=== PATIENT | male | born 1970 | race Caucasian/White ===

== ENCOUNTER 2017-03-03 09:42 | Emergency (ER) | payer OTHER, BC ==
[2017-03-03] MEDS ORDERED: Metoclopramide 10 MG/2 ML SDV IVPUSH ONE (09:54)
[2017-03-03] MEDS ORDERED: HYDROmorphone 1 MG/ML Syringe IVPUSH ONE (09:54)
[2017-03-03] MEDS ORDERED: Clindamycin Phosphate 600 MG in Sodium Chloride 0.9% 100 ML IV ONE (09:55)
--- NOTE | 2017-03-03 09:57 | EDM.PDOC ---
ED HPI GENERAL MEDICAL PROBLEM - General Chief Complaint: Trauma Stated Complaint: LEFT HAND INJURY Time Seen by Provider: 03/03/17 09:52 Source of Information: Reports: Patient History Limitations: Reports: No Limitations - History of Present Illness INITIAL COMMENTS - FREE TEXT/NARRATIVE: 47-year-old male presents the ED with a work related injury. Injury occurred 15 minutes prior to arrival in the ED. States his left hand got caught in a third steel pourer that is used in the workplace. States it crushed the distal aspect of all of his fingers and resulted in open fracture and loss of nail from the left thumb. Of note the patient is right-hand dominant. Tetanus vaccination is up to date. He thinks he had an update about 3 months ago. He suffered no other injuries. Has not yet eaten today. Onset: Today Onset Date: 03/03/17 Onset Time: 09:30 Duration: Minutes:, Constant Location: Reports: Upper Extremity, Left (Left distal fingers and distal thumb.) Left Hand Pain Score (Numeric/FACES): 8 - Related Data Allergies Allergy/AdvReac Type Severity Reaction Status Date / Time Penicillins Allergy Rash Verified 03/03/17 09:47 Home Meds: Home Meds Fexofenadine [Siobhan] 180 mg PO DAILY 03/03/17 [History] Past Medical History - Past Surgical History GI Surgical History: Reports: Hernia, Abdominal (Umbilical hernia repair due to incarceration) Social & Family History - Tobacco Use Smoking Status *Q: Never Smoker - Living Situation & Occupation Living situation: Reports: with Significant Other Occupation: Employed Review of Systems - Review of Systems Review Of Systems: See Below Constitutional: Reports: No Symptoms Eyes: Reports: No Symptoms Ears: Reports: No Symptoms Nose: Reports: Other (Has chronic allergic rhinitis and takes Siobhan daily.) Mouth/Throat: Reports: No Symptoms, Other Respiratory: Reports: No Symptoms (Occasional postnasal drip.) Cardiovascular: Reports: No Symptoms GI/Abdominal: Reports: No Symptoms Genitourinary: Reports: No Symptoms Musculoskeletal: Reports: Other (Injury to the left hand) Skin: Reports: No Symptoms Neurological: Reports: No Symptoms (. See history of present illness) Psychiatric: Reports: No Symptoms ED EXAM, TRAUMA (MAJOR/MULTI) - Physical Exam Exam: See Below Exam Limited By: No Limitations General Appearance: Alert, Moderate Distress Head: Atraumatic, Normocephalic Eyes: Bilateral Eye: Normal Inspection Throat/Mouth: Normal Inspection, Normal Lips, Normal Oropharynx Neck: Non-Tender, Full Range of Motion, Normal Alignment, Normal Inspection Cardiovascular: Normal Peripheral Pulses, Regular Rate, Rhythm, No Edema, No Gallop, No Murmur Respiratory/Chest: No Respiratory Distress, Lungs Clear, Normal Breath Sounds, Chest Non-Tender GI/Abdominal: Normal Bowel Sounds, Soft, Non-Tender, No Organomegaly, Other ( Previous umbilical hernia repair.) Back: Full Range of Motion, Normal Inspection, Non-Tender. No: CVA Tenderness ( R), CVA Tenderness (L) Extremities: Other (Examination was limited to the left hand. He is crushtype injuries to all of his fingertips with subungual hematoma of the fifth fourth and third fingertips. Second finger has a abrasion on the radial aspect of the proximal phalanx. Thumb has an avulsion of the pelvis space with loss of the nail completely. Distal phalyngeal bone is exposed. ) Neurologic: Alert, Normal Mood/Affect, Oriented x 3, Sensory Deficit (Distal left thumb.) Skin: Normal Color, Warm/Dry - Steuben Coma Score Best Eye Response (Steuben): (4) Open Spontaneously Best Verbal Response (Steuben): (5) Oriented Best Motor Response (Steuben): (6) Obeys Commands Lucero Total: 15 Course - Vital Signs Last Recorded V/S: Last Vital Signs Temp 36.7 C 03/03/17 09:45 Pulse 72 03/03/17 10:49 Resp 18 03/03/17 10:49 BP 131/86 03/03/17 10:49 Pulse Ox 98 03/03/17 10:49 - Orders/Labs/Meds Orders: Active Orders 24 hr Category Date Time Status Sodium Chloride 0.9% [Normal Saline] 1,000 ml Med 03/03/17 10:00 Active IV ASDIRECTED Medication Orders Sodium Chloride (Normal Saline) 1,000 mls @ 100 mls/hr IV ASDIRECTED MADDIE Last Admin: 03/03/17 10:18 Dose: 100 mls/hr Labs: Laboratory Tests 03/03/17 03/03/17 Range/Units 09:55 09:55 WBC 9.92 H (4.23-9.07) K/mm3 RBC 4.93 (4.63-6.08) M/mm3 Hgb 15.8 (13.7-17.5) gm/L Hct 45.8 (40.1-51.0) % MCV 92.9 H (79.0-92.2) fl MCH 32.0 (25.7-32.2) pg MCHC 34.5 (32.2-35.5) g/dl RDW Std Deviation 40.6 (35.1-43.9) fL Plt Count 334 (163-337) K/mm3 MPV 9.6 (9.4-12.3) fl Neutrophils % (Manual) 51 (40-60) % Band Neutrophils % 0 (0-10) % Lymphocytes % (Manual) 36 (20-40) % Monocytes % (Manual) 5 (2-10) % Eosinophils % (Manual) 6 (0.8-7.0) % Basophils % (Manual) 2 H (0.2-1.2) Platelet Estimate Adequate RBC Morph Comment Normal Sodium 141 (136-145) mEq/L Potassium 3.8 (3.5-5.1) mEq/L Chloride 103 (98-107) mEq/L Carbon Dioxide 26 (21-32) mEq/L Anion Gap 15.8 H (5-15) BUN 16 (7-18) mg/dL Creatinine 1.1 (0.7-1.3) mg/dL Est Cr Clr Drug Dosing TNP Estimated GFR (MDRD) > 60 (>60) mL/min BUN/Creatinine Ratio 14.5 (14-18) Glucose 130 H (74-106) mg/dL Calcium 9.2 (8.5-10.1) mg/dL Total Bilirubin 0.9 (0.2-1.0) mg/dL AST 38 H (15-37) U/L ALT 43 (16-63) U/L Alkaline Phosphatase 66 (46-116) U/L Total Protein 7.8 (6.4-8.2) g/dl Albumin 4.1 (3.4-5.0) g/dl Globulin 3.7 gm/dL Albumin/Globulin Ratio 1.1 (1-2) Meds: Medications Generic Name Dose Route Start Last Admin Trade Name Freq PRN Reason Stop Dose Admin Sodium Chloride 1,000 mls @ 100 mls/hr 03/03/17 10:00 03/03/17 10:18 Normal Saline IV 100 mls/hr ASDIRECTED MADDIE Administration Discontinued Medications Generic Name Dose Route Start Last Admin Trade Name Leann PRN Reason Stop Dose Admin Hydromorphone HCl 1 mg 03/03/17 09:54 03/03/17 10:17 Dilaudid IVPUSH 03/03/17 09:55 1 mg ONETIME ONE Administration Clindamycin Phosphate 600 mg/ 104 mls @ 100 mls/hr 03/03/17 09:55 03/03/17 10 :18 Sodium Chloride IV 03/03/17 10:57 100 mls/hr ONETIME ONE Administration Metoclopramide HCl 7.5 mg 03/03/17 09:54 03/03/17 10:17 Reglan IVPUSH 03/03/17 09:55 7.5 mg ONETIME ONE Administration - Radiology Interpretation Free Text/Narrative:: 47-year-old male presents to the ED with work-related injury. Suffered a crushtype injury to the left distal hand when it went into a third steel pourer in the workplace. He was not wearing a glove at the time of injury. Has suffered obvious crush injuries to the distal phalanx says of all fingers and an avulsion of the nail completely from the thumb to the matrix of the nail as well as the nail have been completely avulsed. Bone is exposed to the air. Plan : X-ray Lt hand. IV normal saline at 100mls per hour. Given Dilaudid 1mg IV with Reglan 7.5mg IV for pain relief. tetanus is reportedly up to date. - Re-Assessments/Exams Free Text/Narrative Re-Assessment/Exam: 03/03/17 10:18 x-rays of the left hand reveal a tuft fracture of the left fifth finger which is closed. Subungual hematoma evident in the fifth fourth and third fingertips. There is a nondisplaced fracture of the proximal phalanx midshaft of the second finger. The skin of course has been avulsed with the entire distal phalanx exposure of the left thumb. At present we do not have orthopedic services available. Patient has requested [facility] for definitive management. I will therefore contact clinical coordinator in this regard. 03/03/17 10:[address] Jerome in bone and joint clinic in [facility] and he has directed that the patient stays n.p.o. after finishing his IV antibiotics and then will travel to the emergency room at [facility] where other Dr. Sheets or himself will become involved in surgical management of his thumb. Patient was so advised. He'll stay n.p.o. of course. This time he will likely be traveling by private vehicle to [facility] in [place]. He is receiving clindamycin 600 mg IV which will take about another 40 minutes to infuse. His thumb wound was irrigated with saline. Then wrapped with a Telfa pad and a dressing applied to the entire hand. 03/03/17 11:19 discharge from the emergency room and he will be traveling by private vehicle to the emergency department at [facility]. He of course will remain n.p.o. Departure - Departure Time of Disposition: 11:17 Disposition: DC/Tfer to Acute Hospital 02 Condition: fair Clinical Impression: Fracture of hand Qualifiers: Encounter type: initial encounter Fracture type: open Laterality: left Qualified Code(s): S62.92XB - Unspecified fracture of left wrist and hand, initial encounter for open fracture Crushing injury of distal finger Qualifiers: Encounter type: initial encounter Qualified Code(s): S67.10XA - Crushing injury of unspecified finger(s), initial encounter Avulsion fracture of left thumb Qualifiers: Encounter type: initial encounter Fracture type: open Qualified Code(s): S62.502B - Fracture of unspecified phalanx of left thumb, initial encounter for open fracture - Discharge Information Referrals: Esvin Enriquez MD [Primary Care Provider] - Additional Instructions: Travel to [facility] emergency department where you will receive definitive orthopedic management of your thumb injury. Nothing to eat or drink enroute. - My Orders Last 24 Hours: My Active Orders 03/03/17 10:00 Sodium Chloride 0.9% [Normal Saline] 1,000 ml IV ASDIRECTED - Assessment/Plan Last 24 Hours: My Active Orders 03/03/17 10:00 Sodium Chloride 0.9% [Normal Saline] 1,000 ml IV ASDIRECTED
[2017-03-03] MEDS ORDERED: Sodium Chloride 0.9% 1,000 ML IV SCH (10:00)
--- NOTE | 2017-03-03 10:50 | CR ---
Left hand: Four views of the left hand were obtained. Comparison: No previous study. Nondisplaced fracture is identified within the proximal aspect of the proximal phalanx of the second digit. Soft tissue injury seen within the thumb. Fracture identified within the corner base of the distal phalanx of the thumb. Small tuft fracture is seen within the tuft of the distal left fifth finger. No additional bony abnormality is seen. Impression: 1. Fractures within the thumb, second finger and fifth finger as noted above. 2. Prominent soft tissue injury within the distal thumb. Diagnostic code #3
[2017-03-03 11:56] VITALS: BP 136/86
== END 2017-03-03 11:34 ==
LOC: JD.ED 09:42 → SUPCPDRO 09:42 → JD.ED 11:30
DX: S62.92XB Unspecified fracture of left hand, initial encounter for open fracture (principal); S67.10XA Crushing injury of unspecified finger(s), initial encounter; S62.502B Fracture of unspecified phalanx of left thumb, initial encounter for open fracture; W31.9XXA Contact with unspecified machinery, initial encounter; Y92.69 Other specified industrial and construction area as the place of occurrence of the external cause; Y99.0 Civilian activity done for income or pay
CPT/HCPCS: 36415; 73130; 80053; 85025; 96365; 96375; 99285; J1170; J2765; J7030; J7040

== ENCOUNTER 2017-12-16 18:48 | Emergency (ER) | payer BC, OTHER ==
[2017-12-16 19:22] VITALS: BP 139/94
--- NOTE | 2017-12-16 19:44 | EDM.PDOC ---
ED HPI GENERAL MEDICAL PROBLEM - General Chief Complaint: ENT Problem Stated Complaint: STREP THROAT Time Seen by Provider: 12/16/17 19:39 Source of Information: Reports: Patient History Limitations: Reports: No Limitations - History of Present Illness INITIAL COMMENTS - FREE TEXT/NARRATIVE: 47-year-old male presents for evaluation and treatment of a sore throat. Patient reports he has extensive sore throat for the last 3 days. Current symptoms include headaches, body aches, productive cough, sore throat and earaches. He has been taking [id number] medications with little relief. No influenza vaccine this season. Duration: Day(s): (3) Throat Pain Score (Numeric/FACES): 10 - Related Data Allergies Allergy/AdvReac Type Severity Reaction Status Date / Time Penicillins Allergy Rash Verified 12/16/17 23:35 Home Meds: Home Meds Fexofenadine [Siobhan] 180 mg PO DAILY 03/03/17 [History] Codeine/Promethazine [Phenergan with Codeine] 5 ml PO Q6HR PRN #120 ml 12/16/17 [Rx] Oseltamivir [Tamiflu] 75 mg PO BID #10 cap 12/16/17 [Rx] Past Medical History HEENT History: Reports: Other (See Below) Other HEENT History: wisdom teeth out. Respiratory History: Reports: Pneumonia, Recurrent Oncologic (Cancer) History: Reports: Other (See Below) Other Oncologic History: had skin area "froze it" to L) forearm--unsure if was skin CA or not. Dermatologic History: Reports: Other (See Below) Other Dermatologic History: had area of skin removed from L) forearm--unsure of skin CA. - Infectious Disease History Infectious Disease History: Reports: Chicken Pox - Past Surgical History GI Surgical History: Reports: Hernia, Abdominal Social & Family History - Family History Family Medical History: Noncontributory - Tobacco Use Smoking Status *Q: Never Smoker Second Hand Smoke Exposure: Yes - Caffeine Use Caffeine Use: Reports: None - Alcohol Use Days Per Week of Alcohol Use: 3 Number of Drinks Per Day: 2 Total Drinks Per Week: 6 - Recreational Drug Use Recreational Drug Use: No - Living Situation & Occupation Living situation: Reports: with Significant Other Occupation: Employed ED ROS ENT - Review of Systems Review Of Systems: See Below Constitutional: Reports: Chills, Malaise, Weakness, Fatigue HEENT: Reports: Throat Pain. Denies: Ear Pain Respiratory: Reports: Cough GI/Abdominal: Denies: Nausea, Vomiting Neurological: Reports: Headache ED EXAM, ENT - Physical Exam Exam: See Below Exam Limited By: No Limitations General Appearance: Alert, WD/WN, Mild Distress Eye Exam: Bilateral Eye: Normal Inspection Ears: Normal External Exam, Normal Canal, Hearing Grossly Normal, Normal TMs Nose: Normal Inspection Mouth/Throat: Normal Inspection, Normal Lips, Normal Oropharynx Neck: Normal Inspection Respiratory/Chest: No Respiratory Distress, Lungs Clear, Normal Breath Sounds Cardiovascular: Normal Peripheral Pulses, Regular Rate, Rhythm, No Murmur Neurological: Alert, Normal Cognition Psychiatric: Normal Affect, Normal Mood Skin: Diaphoretic, Increased Warmth Course - Vital Signs Last Recorded V/S: Last Vital Signs Temp 38.0 C 12/16/17 19:20 Pulse 80 12/16/17 19:20 Resp 18 12/16/17 19:20 BP 139/94 H 12/16/17 19:20 Pulse Ox 99 12/16/17 19:20 - Radiology Interpretation Free Text/Narrative:: Chest x-ray reviewed by myself and Dr crawford Shows no acute intrathoracic process. - Re-Assessments/Exams Free Text/Narrative Re-Assessment/Exam: 12/16/17 21:46 Influenza returned positive for type B. Strep returned negative I reviewed the imaging and labs at the patient. I will offered him something for the cough. I did offer him some Tamiflu as he seems to be in significant distress. I informed him of the side effects. He would like to start the Tamiflu. We'll discharge him home. Discharge instructions as documented. Departure - Departure Time of Disposition: 21:56 Disposition: Home, Self-Care 01 Condition: Fair Clinical Impression: Influenza B - Discharge Information Prescriptions: Codeine/Promethazine [Phenergan with Codeine] 5 ml PO Q6HR PRN #120 ml PRN Reason: Cough Oseltamivir [Tamiflu] 75 mg PO BID #10 cap Instructions: Influenza, Adult, [id number] Referrals: PCP,None [Primary Care Provider] - Forms: ED Department Discharge Additional Instructions: Tamiflu one Twice a day for 5 days. This medication is known to cause upset stomach, nausea, vomiting diarrhea. This will help shorten the severity and the length of your symptoms. Rest. Make sure you're drinking plenty of fluids. Recommend taking the next week off of work. Tylenol and Motrin as needed for headaches and body aches. Cough syrup with codeine 5 mls every 6 hours as needed for cough. Follow up with your primary care provider if your symptoms do not improve much within 2 weeks. Please return to ER if your symptoms change or worsen.
--- NOTE | 2017-12-17 14:25 | CR ---
Chest: Two views of the chest were obtained. Comparison: No prior chest x-ray. Heart size is normal. Tortuous thoracic aorta is seen. Slight increased density is noted within the left base most likely due to scarring or atelectasis. Lungs otherwise are clear with no pneumonia. Bony structures appear within normal limits for the patient's age. Impression: 1. Mild atelectasis or scarring within the left base. 2. Nothing acute is otherwise seen on two-view chest x-ray. Diagnostic code #2
== END 2017-12-16 22:11 | disposition home or self-care (01) ==
LOC: JD.ED 18:48
DX: J10.1 Influenza due to other identified influenza virus with other respiratory manifestations (principal); Z77.22 Contact with and (suspected) exposure to environmental tobacco smoke (acute) (chronic); Z79.899 Other long term (current) drug therapy; Z88.0 Allergy status to penicillin
CPT/HCPCS: 71046; 71046-26; 87081; 87430; 87804; 99283

== ENCOUNTER 2018-04-04 06:32 | Inpatient (IN) | payer BC ==
[2018-04-04] MEDS ORDERED: Morphine 4 MG/ML Syringe IVPUSH ONE (06:50)
[2018-04-04] MEDS ORDERED: Ondansetron 4 MG/2 ML SDV IVPUSH ONE (06:50)
[2018-04-04] MEDS ORDERED: HYDROmorphone 0.5 MG/0.5 ML SYRINGE IVPUSH ONE ×4 (07:06→10:59)
--- NOTE | 2018-04-04 07:10 | EDM.PDOC ---
ED HPI GENERAL MEDICAL PROBLEM - General Chief Complaint: Abdominal Pain Stated Complaint: SEVERE STOMACH PAIN Time Seen by Provider: 04/04/18 07:01 Source of Information: Reports: Patient History Limitations: Reports: No Limitations - History of Present Illness INITIAL COMMENTS - FREE TEXT/NARRATIVE: 48-year-old male presents the ED complained of severe epigastric abdominal pain rating through to his back. Patient states this awoke him suddenly around 0330 hrs. this morning. Pain initially wasn't too bad. He took some antacids but then ended up vomiting. At no time is he vomited any blood it's been mostly bilious emesis. He does not feel bloated or distended. He does not feel he is passing flatus per rectum. Pain is rated as 10 out of 10. It is very sharp and stabbing. It makes it very difficult to take any deep breath at all due to the severity of the pain in the epigastrium. He has had no similar previous problems. Drinks alcohol 2-3 times per week usually 1-3 beers at a time.One beer last night. Only previous abdominal surgery is been umbilical hernia repair. Onset: Today Onset Date: 04/04/18 Onset Time: 03:30 Duration: Hour(s): Location: Reports: Abdomen Quality: Reports: Sharp, Stabbing Severity: Severe Improves with: Reports: None (10 out of 10 pain) Worsens with: Reports: None Context: Reports: Other (Sudden spontaneous occurrence at 0330 hrs. this morning.). Denies: Activity, Exercise, Lifting, Sick Contact, Trauma Associated Symptoms: Reports: Loss of Appetite, Malaise, Nausea/Vomiting, Weakness. 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 [No Known Home Meds] 04/04/18 [History] Past Medical History - Past Health History Medical/Surgical History: Denies Medical/Surgical History HEENT History: Reports: Other (See Below) Other HEENT History: wisdom teeth out. Respiratory History: Reports: Pneumonia, Recurrent Oncologic (Cancer) History: Reports: Other (See Below) Other Oncologic History: had skin area "froze it" to L) forearm--unsure if was skin CA or not. Dermatologic History: Reports: Other (See Below) Other Dermatologic History: had area of skin removed from L) forearm--unsure of skin CA. - Infectious Disease History Infectious Disease History: Reports: Chicken Pox - Past Surgical History GI Surgical History: Reports: Hernia, Abdominal Social & Family History - Family History Family Medical History: Noncontributory - Tobacco Use Smoking Status *Q: Never Smoker Second Hand Smoke Exposure: No - Caffeine Use Caffeine Use: Reports: None - Living Situation & Occupation Living situation: Reports: with Significant Other Occupation: Employed ED ROS GENERAL - Review of Systems Review Of Systems: See Below Constitutional: Reports: Fatigue, Decreased Appetite. Denies: Fever, Chills HEENT: Reports: No Symptoms Respiratory: Reports: Shortness of Breath (Can take a full deep breath due to the severity of the abdominal pain) Cardiovascular: Reports: No Symptoms Endocrine: Reports: No Symptoms GI/Abdominal: Reports: Abdominal Pain, Decreased Appetite (See history of present illness), Nausea, Vomiting : Reports: No Symptoms Musculoskeletal: Reports: No Symptoms Skin: Reports: No Symptoms Neurological: Reports: No Symptoms Psychiatric: Reports: No Symptoms ED EXAM, GI/ABD - Physical Exam Exam: See Below Exam Limited By: No Limitations General Appearance: Alert, WD/WN, Moderate Distress Eyes: Bilateral: Normal Appearance Head: Atraumatic, Normocephalic Neck: Normal Inspection, Supple, Full Range of Motion. No: Carotid Bruit, Lymphadenopathy (L), Lymphadenopathy (R) Respiratory/Chest: No Respiratory Distress, Lungs Clear, Normal Breath Sounds, Chest Non-Tender, Splinting (Mild splinting respirations.) Cardiovascular: Normal Peripheral Pulses, Regular Rate, Rhythm, No Edema, No Gallop, No Murmur GI/Abdominal Exam: Normal Bowel Sounds, Soft, Tender (Very tender in the epigastrium and midline right costal margin. Does have a positive Red's sign. ) Back Exam: Normal Inspection, Full Range of Motion. No: CVA Tenderness (L), CVA Tenderness (R) Extremities: Normal Inspection, Normal Range of Motion, Non-Tender, No Pedal Edema Neurological: Alert, Oriented, CN II-XII Intact, Normal Cognition Psychiatric: Normal Affect, Normal Mood Skin Exam: Warm, Dry, Intact, Normal Color, No Rash EKG INTERPRETATION EKG Date: 04/04/18 Time: 06:57 Rhythm: NSR Rate (Beats/Min): 70 [place]: LAD-Left [place] Deviation (Findings 54) P-Wave: Present (With a short IL interval.) QRS: Other (Q waves leads II, III, and F aVF. Consider old inferior wall myocardial infarction. There are delta waves present in V5 and V6. 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 There is early R-wave transition.) ST-T: Other (There is a mild diffuse early repolarization pattern.) QT: Prolonged EKG Interpretation Comments: Abnormal ECG Course - Vital Signs Last Recorded V/S: Last Vital Signs Temp 36.7 C 04/04/18 06:37 Pulse 73 04/04/18 06:37 Resp 12 04/04/18 06:37 BP 116/75 04/04/18 06:37 Pulse Ox 98 04/04/18 06:37 - Orders/Labs/Meds Orders: Active Orders 24 hr Category Date Time Status EKG Documentation Completion [RC] STAT Care 04/04/18 07:07 Active Abdomen 1V Flat [CR] Stat Exams 04/04/18 07:08 Taken Chest 1V Frontal [CR] Stat Exams 04/04/18 07:07 Taken UA W/MICROSCOPIC [URIN] Stat Lab 04/04/18 10:45 Ordered Sodium Chloride 0.9% [Normal Saline] 1,000 ml Med 04/04/18 07:15 Active IV ASDIRECTED Sodium Chloride 0.9% [Normal Saline] 1,000 ml Med 04/04/18 11:15 Active IV ASDIRECTED Medication Orders Heparin Sodium (Porcine) (Heparin Sodium) 5,000 units SUBCUT Q8H MADDIE Hydromorphone HCl (Dilaudid) 1 mg IVPUSH Q2H PRN PRN Reason: Pain Sodium Chloride (Normal Saline) 1,000 mls @ 500 mls/hr IV ASDIRECTED MADDIE Last Admin: 04/04/18 07:14 Dose: 500 mls/hr Sodium Chloride (Normal Saline) 1,000 mls @ 999 mls/hr IV ASDIRECTED MADDIE Last Admin: 04/04/18 11:05 Dose: 999 mls/hr Sodium Chloride (Normal Saline) 1,000 mls @ 200 mls/hr IV ASDIRECTED MADDIE Ondansetron HCl (Zofran) 4 mg IVPUSH Q8H PRN PRN Reason: Nausea Labs: Laboratory Tests 04/04/18 04/04/18 04/04/18 Range/Units 06:42 06:42 06:42 WBC 13.81 H (4.23-9.07) K/mm3 RBC 4.97 (4.63-6.08) M/mm3 Hgb 15.7 (13.7-17.5) gm/L Hct 46.5 (40.1-51.0) % MCV 93.6 H (79.0-92.2) fl MCH 31.6 (25.7-32.2) pg MCHC 33.8 (32.2-35.5) g/dl RDW Std Deviation 41.7 (35.1-43.9) fL Plt Count 336 (163-337) K/mm3 MPV 9.8 (9.4-12.3) fl Neutrophils % (Manual) 68 H (40-60) % Band Neutrophils % 1 (0-10) % Lymphocytes % (Manual) 22 (20-40) % Atypical Lymphs % 0 % Monocytes % (Manual) 5 (2-10) % Eosinophils % (Manual) 4 (0.8-7.0) % Basophils % (Manual) 0 L (0.2-1.2) Platelet Estimate Adequate RBC Morph Comment Normal PT 10.3 (9.5-12.1) SECONDS INR 0.94 Sodium 140 (136-145) mEq/L Potassium 3.6 (3.5-5.1) mEq/L Chloride 104 (98-107) mEq/L Carbon Dioxide 26 (21-32) mEq/L Anion Gap 13.6 (5-15) BUN 16 (7-18) mg/dL Creatinine 1.2 (0.7-1.3) mg/dL Est Cr Clr Drug Dosing 70.38 mL/min Estimated GFR (MDRD) > 60 (>60) mL/min BUN/Creatinine Ratio 13.3 L (14-18) Glucose 190 H (74-106) mg/dL Calcium 9.3 (8.5-10.1) mg/dL Magnesium 1.9 (1.8-2.4) mg/dl Total Bilirubin 1.2 H (0.2-1.0) mg/dL GGT (15-85) U/L AST 254 H (15-37) U/L ALT 159 H (16-63) U/L Alkaline Phosphatase 91 (46-116) U/L Troponin I (0.00-0.056) ng/mL C-Reactive Protein < 0.2 (<1.0) mg/dL Total Protein 7.5 (6.4-8.2) g/dl Albumin 3.9 (3.4-5.0) g/dl Globulin 3.6 gm/dL Albumin/Globulin Ratio 1.1 (1-2) Lipase 70646 H (73-393) U/L Urine Color (Yellow) Urine Appearance (Clear) Urine pH (5.0-8.0) Ur Specific [place] (1.005-1.030) Urine Protein (Negative) Urine Glucose (UA) (Negative) Urine Ketones (Negative) Urine Occult Blood (Negative) Urine Nitrite (Negative) Urine Bilirubin (Negative) Urine Urobilinogen (0.2-1.0) Ur Leukocyte Esterase (Negative) Urine RBC (0-5) /hpf Urine WBC (0-5) /hpf Ur Epithelial Cells (0-5) /hpf Urine Bacteria (FEW) /hpf Urine Mucus (FEW) /hpf 04/04/18 04/04/18 04/04/18 Range/Units 06:42 06:42 10:45 WBC (4.23-9.07) K/mm3 RBC (4.63-6.08) M/mm3 Hgb (13.7-17.5) gm/L Hct (40.1-51.0) % MCV (79.0-92.2) fl MCH (25.7-32.2) pg MCHC (32.2-35.5) g/dl RDW Std Deviation (35.1-43.9) fL Plt Count (163-337) K/mm3 MPV (9.4-12.3) fl Neutrophils % (Manual) (40-60) % Band Neutrophils % (0-10) % Lymphocytes % (Manual) (20-40) % Atypical Lymphs % % Monocytes % (Manual) (2-10) % Eosinophils % (Manual) (0.8-7.0) % Basophils % (Manual) (0.2-1.2) Platelet Estimate RBC Morph Comment PT (9.5-12.1) SECONDS INR Sodium (136-145) mEq/L Potassium (3.5-5.1) mEq/L Chloride (98-107) mEq/L Carbon Dioxide (21-32) mEq/L Anion Gap (5-15) BUN (7-18) mg/dL Creatinine (0.7-1.3) mg/dL Est Cr Clr Drug Dosing mL/min Estimated GFR (MDRD) (>60) mL/min BUN/Creatinine Ratio (14-18) Glucose (74-106) mg/dL Calcium (8.5-10.1) mg/dL Magnesium (1.8-2.4) mg/dl Total Bilirubin (0.2-1.0) mg/dL GGT 257 H (15-85) U/L AST (15-37) U/L ALT (16-63) U/L Alkaline Phosphatase (46-116) U/L Troponin I < 0.017 (0.00-0.056) ng/mL C-Reactive Protein (<1.0) mg/dL Total Protein (6.4-8.2) g/dl Albumin (3.4-5.0) g/dl Globulin gm/dL Albumin/Globulin Ratio (1-2) Lipase (73-393) U/L Urine Color Yellow (Yellow) Urine Appearance Clear (Clear) Urine pH 6.0 (5.0-8.0) Ur Specific [place] 1.015 (1.005-1.030) Urine Protein Negative (Negative) Urine Glucose (UA) Negative (Negative) Urine Ketones Negative (Negative) Urine Occult Blood Negative (Negative) Urine Nitrite Negative (Negative) Urine Bilirubin Negative (Negative) Urine Urobilinogen 0.2 (0.2-1.0) Ur Leukocyte Esterase Negative (Negative) Urine RBC Not seen (0-5) /hpf Urine WBC 0-5 (0-5) /hpf Ur Epithelial Cells 0-5 (0-5) /hpf Urine Bacteria Few (FEW) /hpf Urine Mucus Not seen (FEW) /hpf Meds: Medications Generic Name Dose Route Start Last Admin Trade Name Freq PRN Reason Stop Dose Admin Heparin Sodium (Porcine) 5,000 units 04/04/18 11:15 Heparin Sodium SUBCUT Q8H MADDIE Hydromorphone HCl 1 mg 04/04/18 11:13 Dilaudid IVPUSH Q2H PRN Pain Sodium Chloride 1,000 mls @ 500 mls/hr 04/04/18 07:15 04/04/18 07:14 Normal Saline IV 500 mls/hr ASDIRECTED MADDIE Administration Sodium Chloride 1,000 mls @ 999 mls/hr 04/04/18 11:15 04/04/18 11:05 Normal Saline IV 999 mls/hr ASDIRECTED MADDIE Administration Sodium Chloride 1,000 mls @ 200 mls/hr 04/04/18 11:15 Normal Saline IV ASDIRECTED MADDIE Ondansetron HCl 4 mg 04/04/18 11:13 Zofran IVPUSH Q8H PRN Nausea Discontinued Medications Generic Name Dose Route Start Last Admin Trade Name Leann PRN Reason Stop Dose Admin Hydromorphone HCl 0.5 mg 04/04/18 07:06 04/04/18 07:14 Dilaudid IVPUSH 04/04/18 07:07 0.5 mg ONETIME ONE Administration Hydromorphone HCl 1 mg 04/04/18 08:34 04/04/18 08:39 Dilaudid IVPUSH 04/04/18 08:35 1 mg ONETIME ONE Administration Hydromorphone HCl 1 mg 04/04/18 09:41 04/04/18 09:47 Dilaudid IVPUSH 04/04/18 09:42 1 mg ONETIME ONE Administration Hydromorphone HCl 1 mg 04/04/18 10:59 04/04/18 11:05 Dilaudid IVPUSH 04/04/18 11:00 1 mg ONETIME ONE Administration Iopamidol 125 ml 04/04/18 08:32 04/04/18 09:16 Isovue-300 (61%) IVPUSH 04/04/18 08:33 125 ml ONETIME ONE Administration Morphine Sulfate 4 mg 04/04/18 06:50 04/04/18 06:58 Morphine IVPUSH 04/04/18 06:51 4 mg ONETIME ONE Administration Ondansetron HCl 4 mg 04/04/18 06:50 04/04/18 06:58 Zofran IVPUSH 04/04/18 06:51 4 mg ONETIME ONE Administration Sodium Chloride 10 ml 04/04/18 08:32 04/04/18 09:16 Saline Flush FLUSH 04/04/18 08:33 10 ml ONETIME ONE Administration - Radiology Interpretation Free Text/Narrative:: 48-year-old male presents to the ED with acute onset of severe epigastric pain radiating through to his back 0330 hrs. this morning. Pain intensified over the ensuing hour causing him to have precipitous nausea and vomiting 5. Emesis is been primarily bilious to clear. No he met emesis. No similar problems in the past. Previous bowel surgery is an umbilical hernia repair. On exam scaphoid abdomen. Bowel sounds are present but decreased from the norm. Extremely tender in the epigastrium and to the right costal margin medially. Consideration of perforated peptic ulcer versus biliary colic. Patient received morphine 4 mg IV and Zofran 4 mg IV initially for pain relief. Pain is gone from a 10 down to 5. Will give Dilaudid 0.5 mg IV now. Labs to be collected as well as one of the abdomen to be done. ECG as well. - Re-Assessments/Exams Free Text/Narrative Re-Assessment/Exam: 04/04/18 07:45 chest x-ray reveals a poor inspirational view. He does not reveal any pulmonary infiltrates. Cardiac silhouette appears to be normal. KUB reveals a large amount of air distending the stomach. There is a large stool bolus in the right hepatic flexure area. Similarly her stool in the rectal vault. There is no signs of bowel obstruction. ECG is abnormal. He is sinus rhythm at 70/m. There is early R-wave transition. There is a short IL interval. There are delta waves present in V5 V6 with a left axis deviation of -54. 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 There are Q waves leads II, III, and F aVF. Consideration of inferior wall myocardial infarction. Every T interval is prolonged at 429. There is a diffuse early repolarization pattern but no true ischemic signs identified 04/04/18 08:27 Labs reveal an elevated white count at 13.81 with 60% neutrophils and no bands. Hemoglobin is 15.7. Hematocrit is 46.5. MCV is mildly elevated at 93.6. Platelet count is normal at 3 and 36,000. PT is 10.3 with an INR of 0.94. Sodium is 140. Potassium 3.6. Chloride is 104. Bicarbonate is 26. And a gap is normal at 13.6. BUN is 16 with a creatinine of 1.2. GFR is greater than 60. Glucose is elevated at 190. Bilirubin is 1.2 with a GGT elevated at 257. AST is elevated at 54 ELT is 159. Alkaline phosphatase is normal at 91. Lipase is 31,453. Patient therefore is exhibiting signs and his acute pancreatitis. Elevated GGT suggest possibility of biliary tree obstruction although alkaline phosphatase is normal. Plan CT of the abdomen to be done with IV contrast. Discussed the findings with the patient. He still having pain 8 out of 10. Landed Dilaudid 1 mg IV. 04/04/18 09:31 CT of the abdomen and pelvis has been completed with IV contrast only. Lower portions of the lungs are clear. There appears to be a significant pericardial fat pad. Liver is diffusely homogeneous without dilatation of the intrahepatic ducts. Stomach shows it to be distended with a bit of pill calcification in the lower stomach. Pancreas is grossly edematous with stranding suggestive of acute pancreatitis. Gallbladder is distended and shows multiple gallstones. Common bile duct appears to be 5 mm without any obvious obstruction. There is increased stool in the right hemicolon and transverse colon. Kidneys and adrenal glands appear normal. Pelvis appears to be normal. Will await the radiologist's report. 04/04/18 09:40 radiologist's report is similar to my findings. He does not comment on the common bile duct. I spoke with Dr. Mosquera health promotion officer hospitalist in this regard. She will see him in the ED. He is still having severe pain. Will repeat Dilaudid 1 mg IV. 04/04/18 09:54 Dr Hebert Mosquera is seen the patient in the ED. She wishes me to consult health promotion officer surgeon for his opinion in regards to acute cholecystectomy. 04/04/18 11:00 Pain has increased in intensity once again. He has been examined by Dr. Tripathi--local surgeon as well. Plan will be to admit him to the hospital under hospitalist care. He requires definitive cholecystectomy but it is determined that he requires a period of time to reduce his acute pancreatitis symptoms prior to going into surgery. This will likely be a few days. Will repeat Dilaudid 1 mg IV at this time. Departure - Departure Time of Disposition: 11:01 Disposition: Admitted As Inpatient 66 Condition: Serious Clinical Impression: Abdominal pain Qualifiers: Abdominal location: epigastric Qualified Code(s): R10.13 - Epigastric pain Pancreatitis Qualifiers: Chronicity: acute Pancreatitis type: biliary Acute pancreatitis complication: unspecified Qualified Code(s): K85.10 - Biliary acute pancreatitis without necrosis or infection Cholelithiasis Qualifiers: Cholelithiasis location: gallbladder and bile duct Cholecystitis acuity: acute Biliary obstruction: without biliary obstruction - Discharge Information - My Orders Last 24 Hours: My Active Orders 04/04/18 07:07 EKG Documentation Completion [RC] STAT Chest 1V Frontal [CR] Stat 04/04/18 07:08 Abdomen 1V Flat [CR] Stat 04/04/18 07:15 Sodium Chloride 0.9% [Normal Saline] 1,000 ml IV ASDIRECTED 04/04/18 11:15 Sodium Chloride 0.9% [Normal Saline] 1,000 ml IV ASDIRECTED - Assessment/Plan Last 24 Hours: My Active Orders 04/04/18 07:07 EKG Documentation Completion [RC] STAT Chest 1V Frontal [CR] Stat 04/04/18 07:08 Abdomen 1V Flat [CR] Stat 04/04/18 07:15 Sodium Chloride 0.9% [Normal Saline] 1,000 ml IV ASDIRECTED 04/04/18 11:15 Sodium Chloride 0.9% [Normal Saline] 1,000 ml IV ASDIRECTED
[2018-04-04] MEDS ORDERED: Sodium Chloride 0.9% 1,000 ML IV SCH ×2 (07:15→11:15)
[2018-04-04] MEDS ORDERED: Iopamidol 612 MG/ML 150 ML Bottle IVPUSH ONE (08:32)
[2018-04-04] MEDS: Sodium Chloride 0.9% 10 ML Syringe FLUSH ONE ×2 (08:39→09:16)
--- NOTE | 2018-04-04 09:29 | CT ---
CT abdomen and pelvis Technique: Multiple axial sections were obtained from above the dome of the diaphragm inferiorly through the pubic symphysis. Intravenous contrast was utilized. No oral contrast was given. Findings: Inflammatory change is identified around the pancreas. Fluid is seen to extend down the paracolic gutter on the right side. Gallstones are seen within the gallbladder. Atelectasis is noted within both lung bases. Liver shows no focal abnormality. Spleen appears within normal limits. Adrenal glands show no nodule. Aorta shows no aneurysmal dilatation. No retroperitoneal adenopathy or mesenteric abnormalities are seen. Appendix is seen which is normal. No pelvic mass or adenopathy is seen. Bone window settings were reviewed which appear within normal limits for the patient's age. Impression: 1. Findings compatible with pancreatitis as noted above. 2. Gallstones. Diagnostic code #3
[2018-04-04] MEDS ORDERED: Ondansetron 4 MG/2 ML SDV IVPUSH PRN (11:13)
[2018-04-04] MEDS: Heparin Sodium 5,000 Units/ML Vial SUBCUT SCH ×2 (12:21→18:22)
[2018-04-04] MEDS: Sodium Chloride 0.9% 1,000 ML IV SCH ×3 (12:21→22:36)
[2018-04-04] MEDS: HYDROmorphone 0.5 MG/0.5 ML SYRINGE IVPUSH PRN ×3 (12:31→17:14)
[2018-04-04] MEDS ORDERED: Albuterol/Ipratropium 3.0-0.5 MG/3 ML Neb Soln NEB PRN (14:00)
--- NOTE | 2018-04-04 14:10 | PCM.HP ---
H&P History of Present Illness - General Date of Service: 04/04/18 Admit Problem/Dx: Admission Diagnosis/Problem Admission Diagnosis/Problem Gallstone pancreatitis Source of Information: Patient History Limitations: Reports: No Limitations - History of Present Illness Initial Comments - Free Text/Narative: 48 yo male, presents with severe mid-epigastric abdominal pain, which started at around 3 AM this morning (about 10 hours ago). Patient has been persistent, requiring IV dilaudid in the ER. Pain has been associated with nausea, without emesis. No prior episodes of similar pain. Patient tried to take antacid at home , but without relief. No diarrhea/constipation. Abdominal Pain Score (Numeric/FACES): 6 - Related Data Allergies/Adverse Reactions: Allergies Allergy/AdvReac Type Severity Reaction Status Date / Time cat dander Allergy Swelling Verified 04/04/18 12:09 dog dander Allergy Swelling Verified 04/04/18 12:09 egg Allergy Swollen Verified 04/04/18 12:09 Tongue Penicillins Allergy Rash Verified 04/04/18 12:09 Home Medications: Home Meds Fexofenadine [Siobhan] 180 mg PO DAILY 04/04/18 [History] Past Medical History - Past Health History Medical/Surgical History: Denies Medical/Surgical History HEENT History: Reports: Other (See Below) Other HEENT History: wisdom teeth out. Respiratory History: Reports: Pneumonia, Recurrent Other Neuro History: headaches from allergies Oncologic (Cancer) History: Reports: Other (See Below) Other Oncologic History: had skin area "froze it" to L) forearm--unsure if was skin CA or not. Dermatologic History: Reports: Other (See Below) Other Dermatologic History: had area of skin removed from L) forearm--unsure of skin CA. - Infectious Disease History Infectious Disease History: Reports: Chicken Pox - Past Surgical History GI Surgical History: Reports: Hernia, Abdominal (prior umbilical hernia repair ( 4 years ago)) Social & Family History - Family History Family Medical History: Noncontributory - Tobacco Use Smoking Status *Q: Former Smoker Used Tobacco, but Quit: Yes Month/Year Tobacco Last Used: 1998 Second Hand Smoke Exposure: No - Caffeine Use Caffeine Use: Reports: Coffee, Energy Drinks, Tea - Alcohol Use Number of Drinks Per Day: 4 Date of Last Drink: 04/03/18 Time of Last Drink: 18:00 - Recreational Drug Use Recreational Drug Use: No 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 Exam - Exam Exam: See Below - Vital Signs Vital Signs: Last Vital Signs Temp 36.4 C 04/04/18 11:50 Pulse 68 04/04/18 11:50 Resp 17 04/04/18 11:50 BP 141/81 H 04/04/18 11:50 Pulse Ox 98 04/04/18 11:50 Weight: 83.143 kg - Exam General: Alert, Oriented, Cooperative HEENT: Conjunctiva Clear. No: Scleral Icterus Neck: Supple Lungs: Clear to Auscultation, Normal Respiratory Effort Cardiovascular: Regular Rate, Regular Rhythm, Normal S1, Normal S2. No: Systolic Murmur GI/Abdominal Exam: Soft, No Distention, Tender (TENDER THROUGHOUT THE ABDOMEN, ESPECIALLY IN THE EPIGASTRIC REGION.), Other (well-healed umbilical surgical scar) Extremities: Normal Inspection Skin: Warm, Dry, Intact Neuro Extensive - Mental Status: Alert Psychiatric: Alert, Other (APPEARS UNCOMFORTABLE, MOANING IN PAIN.) - Patient Data Lab Results Last 24 hrs: Laboratory Results - last 24 hr 04/04/18 04/04/18 04/04/18 Range/Units 06:42 06:42 06:42 WBC 13.81 H (4.23-9.07) K/mm3 RBC 4.97 (4.63-6.08) M/mm3 Hgb 15.7 (13.7-17.5) gm/L Hct 46.5 (40.1-51.0) % MCV 93.6 H (79.0-92.2) fl MCH 31.6 (25.7-32.2) pg MCHC 33.8 (32.2-35.5) g/dl RDW Std Deviation 41.7 (35.1-43.9) fL Plt Count 336 (163-337) K/mm3 MPV 9.8 (9.4-12.3) fl Neutrophils % (Manual) 68 H (40-60) % Band Neutrophils % 1 (0-10) % Lymphocytes % (Manual) 22 (20-40) % Atypical Lymphs % 0 % Monocytes % (Manual) 5 (2-10) % Eosinophils % (Manual) 4 (0.8-7.0) % Basophils % (Manual) 0 L (0.2-1.2) Platelet Estimate Adequate RBC Morph Comment Normal PT 10.3 (9.5-12.1) SECONDS INR 0.94 Sodium 140 (136-145) mEq/L Potassium 3.6 (3.5-5.1) mEq/L Chloride 104 (98-107) mEq/L Carbon Dioxide 26 (21-32) mEq/L Anion Gap 13.6 (5-15) BUN 16 (7-18) mg/dL Creatinine 1.2 (0.7-1.3) mg/dL Est Cr Clr Drug Dosing 70.38 mL/min Estimated GFR (MDRD) > 60 (>60) mL/min BUN/Creatinine Ratio 13.3 L (14-18) Glucose 190 H (74-106) mg/dL Calcium 9.3 (8.5-10.1) mg/dL Magnesium 1.9 (1.8-2.4) mg/dl Total Bilirubin 1.2 H (0.2-1.0) mg/dL GGT (15-85) U/L AST 254 H (15-37) U/L ALT 159 H (16-63) U/L Alkaline Phosphatase 91 (46-116) U/L Troponin I (0.00-0.056) ng/mL C-Reactive Protein < 0.2 (<1.0) mg/dL Total Protein 7.5 (6.4-8.2) g/dl Albumin 3.9 (3.4-5.0) g/dl Globulin 3.6 gm/dL Albumin/Globulin Ratio 1.1 (1-2) Lipase 92980 H (73-393) U/L Urine Color (Yellow) Urine Appearance (Clear) Urine pH (5.0-8.0) Ur Specific [place] (1.005-1.030) Urine Protein (Negative) Urine Glucose (UA) (Negative) Urine Ketones (Negative) Urine Occult Blood (Negative) Urine Nitrite (Negative) Urine Bilirubin (Negative) Urine Urobilinogen (0.2-1.0) Ur Leukocyte Esterase (Negative) Urine RBC (0-5) /hpf Urine WBC (0-5) /hpf Ur Epithelial Cells (0-5) /hpf Urine Bacteria (FEW) /hpf Urine Mucus (FEW) /hpf 04/04/18 04/04/18 04/04/18 Range/Units 06:42 06:42 10:45 WBC (4.23-9.07) K/mm3 RBC (4.63-6.08) M/mm3 Hgb (13.7-17.5) gm/L Hct (40.1-51.0) % MCV (79.0-92.2) fl MCH (25.7-32.2) pg MCHC (32.2-35.5) g/dl RDW Std Deviation (35.1-43.9) fL Plt Count (163-337) K/mm3 MPV (9.4-12.3) fl Neutrophils % (Manual) (40-60) % Band Neutrophils % (0-10) % Lymphocytes % (Manual) (20-40) % Atypical Lymphs % % Monocytes % (Manual) (2-10) % Eosinophils % (Manual) (0.8-7.0) % Basophils % (Manual) (0.2-1.2) Platelet Estimate RBC Morph Comment PT (9.5-12.1) SECONDS INR Sodium (136-145) mEq/L Potassium (3.5-5.1) mEq/L Chloride (98-107) mEq/L Carbon Dioxide (21-32) mEq/L Anion Gap (5-15) BUN (7-18) mg/dL Creatinine (0.7-1.3) mg/dL Est Cr Clr Drug Dosing mL/min Estimated GFR (MDRD) (>60) mL/min BUN/Creatinine Ratio (14-18) Glucose (74-106) mg/dL Calcium (8.5-10.1) mg/dL Magnesium (1.8-2.4) mg/dl Total Bilirubin (0.2-1.0) mg/dL GGT 257 H (15-85) U/L AST (15-37) U/L ALT (16-63) U/L Alkaline Phosphatase (46-116) U/L Troponin I < 0.017 (0.00-0.056) ng/mL C-Reactive Protein (<1.0) mg/dL Total Protein (6.4-8.2) g/dl Albumin (3.4-5.0) g/dl Globulin gm/dL Albumin/Globulin Ratio (1-2) Lipase (73-393) U/L Urine Color Yellow (Yellow) Urine Appearance Clear (Clear) Urine pH 6.0 (5.0-8.0) Ur Specific [place] 1.015 (1.005-1.030) Urine Protein Negative (Negative) Urine Glucose (UA) Negative (Negative) Urine Ketones Negative (Negative) Urine Occult Blood Negative (Negative) Urine Nitrite Negative (Negative) Urine Bilirubin Negative (Negative) Urine Urobilinogen 0.2 (0.2-1.0) Ur Leukocyte Esterase Negative (Negative) Urine RBC Not seen (0-5) /hpf Urine WBC 0-5 (0-5) /hpf Ur Epithelial Cells 0-5 (0-5) /hpf Urine Bacteria Few (FEW) /hpf Urine Mucus Not seen (FEW) /hpf Result Diagrams: 04/04/18 06:42 04/04/18 06:42 Imaging Impressions Last 24 hrs: CT abd/pelvis with IV contrast: Radiology report: "Inflammatory change is identified around the pancreas. Fluid is seen to extend down the paracolic gutter on the right side. Gallstones seen within the gallbladder." - Problem List (1) Acute gallstone pancreatitis SNOMED Code(s): 514942698 ICD Code: K85.10 - BILIARY ACUTE PANCREATITIS WITHOUT NECROSIS OR INFECTION Status: Acute Current Visit: Yes Problem List Initiated/Reviewed/Updated: Yes Orders Last 24hrs: Active Orders 24 hr Category Date Time Status Patient Status [ADT] Routine ADT 04/04/18 11:11 Active EKG Documentation Completion [RC] STAT Care 04/04/18 07:07 Active Intake and Output Strict [RC] Q4HR Care 04/04/18 14:04 Ordered Oxygen Therapy [RC] PRN Care 04/04/18 11:11 Active VTE/DVT Education [RC] PER UNIT ROUTINE Care 04/04/18 11:11 Active Vital Signs [RC] Q4H Care 04/04/18 11:11 Active Nothing per Oral Now Diet [DIET] Diet 04/04/18 Breakfast Active Abdomen 1V Flat [CR] Stat Exams 04/04/18 07:08 Taken Chest 1V Frontal [CR] Stat Exams 04/04/18 07:07 Taken UA W/MICROSCOPIC [URIN] Stat Lab 04/04/18 10:45 Ordered HYDROmorphone [Dilaudid] Med 04/04/18 11:13 Active 1 mg IVPUSH Q2H PRN Heparin Sodium Med 04/04/18 11:15 Active 5,000 units SUBCUT Q8H Ondansetron [Zofran] Med 04/04/18 11:13 Active 4 mg IVPUSH Q8H PRN Sodium Chloride 0.9% [Normal Saline] 1,000 ml Med 04/04/18 07:15 Active IV ASDIRECTED Sodium Chloride 0.9% [Normal Saline] 1,000 ml Med 04/04/18 11:15 Active IV ASDIRECTED Sodium Chloride 0.9% [Normal Saline] 1,000 ml Med 04/04/18 11:15 Active IV ASDIRECTED Sequential Compression Device [OM.PC] Per Unit Routine Oth 04/04/18 11:12 Ordered Resuscitation Status Routine Resus Stat 04/04/18 11:11 Ordered Medication Orders Heparin Sodium (Porcine) (Heparin Sodium) 5,000 units SUBCUT Q8H [facility] Last Admin: 04/04/18 12:21 Dose: 5,000 units Hydromorphone HCl (Dilaudid) 1 mg IVPUSH Q2H PRN PRN Reason: Pain Last Admin: 04/04/18 12:31 Dose: 1 mg Sodium Chloride (Normal Saline) 1,000 mls @ 500 mls/hr IV ASDIRECTED [facility] Last Admin: 04/04/18 07:14 Dose: 500 mls/hr Sodium Chloride (Normal Saline) 1,000 mls @ 999 mls/hr IV ASDIRECTED [facility] Last Admin: 04/04/18 11:05 Dose: 999 mls/hr Sodium Chloride (Normal Saline) 1,000 mls @ 200 mls/hr IV ASDIRECTED [facility] Last Admin: 04/04/18 12:21 Dose: 200 mls/hr Ondansetron HCl (Zofran) 4 mg IVPUSH Q8H PRN PRN Reason: Nausea Assessment/Plan Comment:: 48 yo male, with first episode of acute gallstone pancreatitis, with WBC of 13.8 , glucose of 190, and AST of 254. Based on initial laboratory data, patient has a Zulema score of 1. Tbili is wnl. The patient already received Dilaudid IV and NS 1 L bolus in the ER. Will give an additional [address] Abd/Pelvis images were reviewed. Inflammatory changes around the pancreas, with peripancreatic fluid. Radio-opaque gallstones are also seen. - Will admit to [facility]. - NPO - IV fluids at initial rate of 200 cc/hr, with strict I&O's. - Pain control with IV narcotics and IV acetaminophen. - Repeat labs in AM. - DVT prophylaxis: heparin 5000 units SQ TID. Patient will require cholecystectomy prior to discharge, but for now, will await for improvement in pancreatitis. The patient's care will be taken over by Dr. Le Hernandez tomorrow morning. The patient's images were reviewed with Dr. Hernandez, and the patient's clinical case was discussed. Robinson Zapata M.D., F.A.C.S. General Surgery Pager: [phone]
[2018-04-04] MEDS: Morphine PF 30 MG/30 ML PCA Vial IV SCH ×2 (18:11→23:50)
[2018-04-05] MEDS: Sodium Chloride 0.9% 1,000 ML IV SCH ×5 (00:32→23:45)
[2018-04-05] MEDS: Heparin Sodium 5,000 Units/ML Vial SUBCUT SCH ×3 (03:41→19:07)
--- NOTE | 2018-04-05 08:29 | CR ---
Chest: Frontal view of the chest was obtained. Comparison: Prior chest x-ray of 12/16/17. Heart size appears normal. Mild tortuosity of the thoracic aorta is seen. Lungs are clear with no acute parenchymal densities. Bony structures are grossly intact. Impression: 1. Nothing acute is seen on frontal chest x-ray. Diagnostic code #1
--- NOTE | 2018-04-05 08:29 | CR ---
Abdomen: Supine view of the abdomen was obtained. Comparison: No prior abdominal x-ray. Bowel gas pattern appears within normal limits. No abnormal calcifications or soft tissue abnormality is seen. Bony structures are unremarkable. Impression: 1. Nothing acute is seen on supine abdominal x-ray. Diagnostic code #1
[2018-04-05] MEDS: Morphine PF 30 MG/30 ML PCA Vial IV SCH ×2 (08:40→17:00)
--- NOTE | 2018-04-05 13:19 | PCM.PN ---
- General Info Date of Service: 04/05/18 - Patient Data Vitals - Most Recent: Last Vital Signs Temp 99.7 F 04/05/18 11:38 Pulse 95 04/05/18 11:38 Resp 18 04/05/18 11:38 BP 131/87 04/05/18 11:38 Pulse Ox 96 04/05/18 11:38 Weight - Most Recent: 185 lb 6.4 oz I&O - Last 24 Hours: Intake & Output 04/04/18 04/05/18 04/05/18 22:59 06:59 14:59 Intake Total 6694 199 2462 Output Total 600 475 250 Balance 650 106 873 Lab Results Last 24 Hours: Laboratory Results - last 24 hr 04/05/18 04/05/18 Range/Units 06:35 06:35 WBC 13.42 H (4.23-9.07) K/mm3 RBC 4.52 L (4.63-6.08) M/mm3 Hgb 14.6 (13.7-17.5) gm/L Hct 43.7 (40.1-51.0) % MCV 96.7 H (79.0-92.2) fl MCH 32.3 H (25.7-32.2) pg MCHC 33.4 (32.2-35.5) g/dl RDW Std Deviation 43.9 (35.1-43.9) fL Plt Count 236 (163-337) K/mm3 MPV 10.0 (9.4-12.3) fl Neut % (Auto) 82.6 H (34.0-67.9) % Lymph % (Auto) 6.6 L (21.8-53.1) % [place] % (Auto) 10.5 (5.3-12.2) % Eos % (Auto) 0 L (0.8-7.0) Baso % (Auto) 0.1 (0.1-1.2) % Neut # (Auto) 11.08 H (1.78-5.38) K/mm3 Lymph # (Auto) 0.89 L (1.32-3.57) K/mm3 [place] # (Auto) 1.41 H (0.30-0.82) K/mm3 Eos # (Auto) 0.00 L (0.04-0.54) K/mm3 Baso # (Auto) 0.01 (0.01-0.08) K/mm3 Manual Slide Review Abnormal smear Sodium 140 (136-145) mEq/L Potassium 3.6 (3.5-5.1) mEq/L Chloride 106 (98-107) mEq/L Carbon Dioxide 25 (21-32) mEq/L Anion Gap 12.6 (5-15) BUN 12 (7-18) mg/dL Creatinine 0.9 (0.7-1.3) mg/dL Est Cr Clr Drug Dosing 100.38 mL/min Estimated GFR (MDRD) > 60 (>60) mL/min BUN/Creatinine Ratio 13.3 L (14-18) Glucose 143 H (74-106) mg/dL Calcium 8.4 L (8.5-10.1) mg/dL Magnesium 1.5 L (1.8-2.4) mg/dl Total Bilirubin 1.1 H (0.2-1.0) mg/dL AST 106 H (15-37) U/L ALT 160 H (16-63) U/L Alkaline Phosphatase 64 (46-116) U/L Total Protein 6.3 L (6.4-8.2) g/dl Albumin 3.1 L (3.4-5.0) g/dl Globulin 3.2 gm/dL Albumin/Globulin Ratio 1.0 (1-2) Med Orders - Current: Current Medications Albuterol/Ipratropium (Duoneb 3.0-0.5 Mg/3 Ml) 3 ml NEB Q4H PRN PRN Reason: Shortness Of Breath/wheezing Heparin Sodium (Porcine) (Heparin Sodium) 5,000 units SUBCUT Q8H [facility] Last Admin: 04/05/18 11:32 Dose: 5,000 units Hydromorphone HCl (Dilaudid) 1 mg IVPUSH Q2H PRN PRN Reason: Pain Last Admin: 04/04/18 17:14 Dose: 1 mg Sodium Chloride (Normal Saline) 1,000 mls @ 150 mls/hr IV ASDIRECTED [facility] Last Admin: 04/05/18 10:19 Dose: 150 mls/hr Acetaminophen (Ofirmev) 100 mls @ 400 mls/hr IV Q6H PRN PRN Reason: Pain Stop: 04/06/18 01:32 Morphine Sulfate (Morphine [employer] 30 Mg In 30 Ml) 30 mg IV ASDIRECTED [facility]; Protocol Last Admin: 04/05/18 08:40 Dose: 30 mg Ondansetron HCl (Zofran) 4 mg IVPUSH Q8H PRN PRN Reason: Nausea Last Admin: 04/04/18 16:43 Dose: 4 mg Discontinued Medications Hydromorphone HCl (Dilaudid) 0.5 mg IVPUSH ONETIME ONE Stop: 04/04/18 07:07 Last Admin: 04/04/18 07:14 Dose: 0.5 mg Hydromorphone HCl (Dilaudid) 1 mg IVPUSH ONETIME ONE Stop: 04/04/18 08:35 Last Admin: 04/04/18 08:39 Dose: 1 mg Hydromorphone HCl (Dilaudid) 1 mg IVPUSH ONETIME ONE Stop: 04/04/18 09:42 Last Admin: 04/04/18 09:47 Dose: 1 mg Hydromorphone HCl (Dilaudid) 1 mg IVPUSH ONETIME ONE Stop: 04/04/18 11:00 Last Admin: 04/04/18 11:05 Dose: 1 mg Sodium Chloride (Normal Saline) 1,000 mls @ 500 mls/hr IV ASDIRECTED [facility] Last Admin: 04/04/18 07:14 Dose: 500 mls/hr Sodium Chloride (Normal Saline) 1,000 mls @ 999 mls/hr IV ASDIRECTED [facility] Last Admin: 04/04/18 11:05 Dose: 999 mls/hr Sodium Chloride (Normal Saline) 1,000 mls @ 200 mls/hr IV ASDIRECTED [facility] Last Admin: 04/04/18 22:36 Dose: 200 mls/hr Acetaminophen (Ofirmev) 100 mls @ 400 mls/hr IV Q6H PRN PRN Reason: Pain Stop: 04/05/18 18:38 Last Admin: 04/04/18 19:57 Dose: 400 mls/hr Acetaminophen (Ofirmev) 100 mls @ 400 mls/hr IV Q6H PRN PRN Reason: Pain Stop: 04/06/18 02:01 Acetaminophen (Ofirmev) 100 mls @ 400 mls/hr IV NOW ONE Stop: 04/05/18 02:14 Iopamidol (Isovue-300 (61%)) 125 ml IVPUSH ONETIME ONE Stop: 04/04/18 08:33 Last Admin: 04/04/18 09:16 Dose: 125 ml Morphine Sulfate (Morphine) 4 mg IVPUSH ONETIME ONE Stop: 04/04/18 06:51 Last Admin: 04/04/18 06:58 Dose: 4 mg Ondansetron HCl (Zofran) 4 mg IVPUSH ONETIME ONE Stop: 04/04/18 06:51 Last Admin: 04/04/18 06:58 Dose: 4 mg Sodium Chloride (Saline Flush) 10 ml FLUSH ONETIME ONE Stop: 04/04/18 08:33 Last Admin: 04/04/18 09:16 Dose: 10 ml - Problem List Review Problem List Initiated/Reviewed/Updated: Yes - My Orders Last 24 Hours: My Active Orders 04/05/18 12:26 LIPASE [CHEM] Routine 04/05/18 Dinner Clear Liquid Diet [DIET] 04/06/18 05:11 HEPATIC FUNCTION PANEL,HFP [CHEM] Routine - Plan Plan:: 48 yo male, with first episode of acute gallstone pancreatitis, with WBC of 13.8 , glucose of 190, and AST of 254. Based on initial laboratory data, patient has a Zulema score of 1. Tbili is wnl. The patient already received Dilaudid IV and NS 1 L bolus in the ER. Will give an additional [address] Abd/Pelvis images were reviewed. Inflammatory changes around the pancreas, with peripancreatic fluid. Radio-opaque gallstones are also seen. - Will admit to [facility]. - NPO - IV fluids at initial rate of 200 cc/hr, with strict I&O's. - Pain control with IV narcotics and IV acetaminophen. - Repeat labs in AM. - DVT prophylaxis: heparin 5000 units SQ TID. Patient will require cholecystectomy prior to discharge, but for now, will await for improvement in pancreatitis. The patient's care will be taken over by Dr. Le Hernandez tomorrow morning. The patient's images were reviewed with Dr. Hernandez, and the patient's clinical case was discussed. Progress note for Mr. Amaro by Dr. Hernandez April 05, 2018 Mr Amaro had a fairly comfortable night. Low grade fever of 100 voiding without problem but urine is dark No flatus. PE--lungs clear abd--there are occasional bs- still distended and tender in the epigastric area labs slightly improved lipase is pending IMP slightly improved biliary pancreatitis. I discussed with him that we want to wait with checo until his is improved unless things deteriorate i explained that he had a serious case of pancreatitis due to the gall bladder. PLAN will cont with serial exams. ok for clear liquids sparingly.
[2018-04-06] MEDS: Morphine PF 30 MG/30 ML PCA Vial IV SCH ×2 (03:38→11:34)
[2018-04-06] MEDS: Heparin Sodium 5,000 Units/ML Vial SUBCUT SCH ×3 (03:38→18:26)
[2018-04-06] MEDS: Sodium Chloride 0.9% 1,000 ML IV SCH ×2 (06:07→12:56)
--- NOTE | 2018-04-06 08:00 | PCM.PN ---
- General Info Date of Service: 04/06/18 - Patient Data Vitals - Most Recent: Last Vital Signs Temp 99.5 F 04/06/18 03:43 Pulse 105 H 04/06/18 03:43 Resp 15 04/06/18 03:43 BP 130/87 04/06/18 03:43 Pulse Ox 91 L 04/06/18 03:43 Weight - Most Recent: 186 lb 3.2 oz I&O - Last 24 Hours: Intake & Output 04/05/18 04/06/18 04/06/18 22:59 06:59 14:59 Intake Total 1290 1835 Output Total 650 300 Balance 640 1535 Lab Results Last 24 Hours: Laboratory Results - last 24 hr 04/05/18 04/06/18 04/06/18 Range/Units 06:35 05:34 05:34 WBC 12.84 H (4.23-9.07) K/mm3 RBC 4.10 L (4.63-6.08) M/mm3 Hgb 13.1 L (13.7-17.5) gm/L Hct 40.2 (40.1-51.0) % MCV 98.0 H (79.0-92.2) fl MCH 32.0 (25.7-32.2) pg MCHC 32.6 (32.2-35.5) g/dl RDW Std Deviation 44.9 H (35.1-43.9) fL Plt Count 212 (163-337) K/mm3 MPV 9.7 (9.4-12.3) fl Neut % (Auto) 80.0 H (34.0-67.9) % Lymph % (Auto) 8.8 L (21.8-53.1) % [place] % (Auto) 10.4 (5.3-12.2) % Eos % (Auto) 0.3 L (0.8-7.0) Baso % (Auto) 0.2 (0.1-1.2) % Neut # (Auto) 10.27 H (1.78-5.38) K/mm3 Lymph # (Auto) 1.13 L (1.32-3.57) K/mm3 [place] # (Auto) 1.34 H (0.30-0.82) K/mm3 Eos # (Auto) 0.04 (0.04-0.54) K/mm3 Baso # (Auto) 0.02 (0.01-0.08) K/mm3 Manual Slide Review Abnormal smear Sodium 135 L (136-145) mEq/L Potassium 3.6 (3.5-5.1) mEq/L Chloride 102 (98-107) mEq/L Carbon Dioxide 28 (21-32) mEq/L Anion Gap 8.6 (5-15) BUN 10 (7-18) mg/dL Creatinine 0.9 (0.7-1.3) mg/dL Est Cr Clr Drug Dosing 100.38 mL/min Estimated GFR (MDRD) > 60 (>60) mL/min BUN/Creatinine Ratio 11.1 L (14-18) Glucose 154 H (74-106) mg/dL Calcium 8.3 L (8.5-10.1) mg/dL Magnesium 1.6 L (1.8-2.4) mg/dl Total Bilirubin 1.3 H (0.2-1.0) mg/dL AST 49 H (15-37) U/L ALT 90 H (16-63) U/L Alkaline Phosphatase 49 (46-116) U/L Total Protein 5.8 L (6.4-8.2) g/dl Albumin 2.6 L (3.4-5.0) g/dl Globulin 3.2 gm/dL Albumin/Globulin Ratio 0.8 L (1-2) Lipase 7949 H (73-393) U/L Med Orders - Current: Current Medications Albuterol/Ipratropium (Duoneb 3.0-0.5 Mg/3 Ml) 3 ml NEB Q4H PRN PRN Reason: Shortness Of Breath/wheezing Heparin Sodium (Porcine) (Heparin Sodium) 5,000 units SUBCUT Q8H [facility] Last Admin: 04/06/18 03:38 Dose: 5,000 units Hydromorphone HCl (Dilaudid) 1 mg IVPUSH Q2H PRN PRN Reason: Pain Last Admin: 04/04/18 17:14 Dose: 1 mg Sodium Chloride (Normal Saline) 1,000 mls @ 150 mls/hr IV ASDIRECTED [facility] Last Admin: 04/06/18 06:07 Dose: 150 mls/hr Morphine Sulfate (Morphine History Teacher 30 Mg In 30 Ml) 30 mg IV ASDIRECTED [facility]ADDIE; Protocol Last Admin: 04/06/18 03:38 Dose: 30 mg Ondansetron HCl (Zofran) 4 mg IVPUSH Q8H PRN PRN Reason: Nausea Last Admin: 04/04/18 16:43 Dose: 4 mg Discontinued Medications Hydromorphone HCl (Dilaudid) 0.5 mg IVPUSH ONETIME ONE Stop: 04/04/18 07:07 Last Admin: 04/04/18 07:14 Dose: 0.5 mg Hydromorphone HCl (Dilaudid) 1 mg IVPUSH ONETIME ONE Stop: 04/04/18 08:35 Last Admin: 04/04/18 08:39 Dose: 1 mg Hydromorphone HCl (Dilaudid) 1 mg IVPUSH ONETIME ONE Stop: 04/04/18 09:42 Last Admin: 04/04/18 09:47 Dose: 1 mg Hydromorphone HCl (Dilaudid) 1 mg IVPUSH ONETIME ONE Stop: 04/04/18 11:00 Last Admin: 04/04/18 11:05 Dose: 1 mg Sodium Chloride (Normal Saline) 1,000 mls @ [facility] Last Admin: 04/04/18 07:14 Dose: 500 mls/hr Sodium Chloride (Normal Saline) 1,000 mls @ 999 [facility]ls[facility] Last Admin: 04/04/18 11:05 Dose: 999 mls/hr Sodium Chloride (Normal Saline) 1,000 mls @ 200 mls/[facility] Last Admin: 04/04/18 22:36 Dose: 200 mls/hr Acetaminophen (Ofirmev) 100 mls @ 400 mls/hr IV Q6H PRN PRN Reason: Pain Stop: 04/05/18 18:38 Last Admin: 04/04/18 19:57 Dose: 400 mls/hr Acetaminophen (Ofirmev) 100 mls @ 400 mls/hr IV Q6H PRN PRN Reason: Pain Stop: 04/06/18 02:01 Acetaminophen (Ofirmev) 100 mls @ 400 mls/hr IV NOW ONE Stop: 04/05/18 02:14 Acetaminophen (Ofirmev) 100 mls @ 400 mls/hr IV Q6H PRN PRN Reason: Pain Stop: 04/06/18 01:32 Iopamidol (Isovue-300 (61%)) 125 ml IVPUSH ONETIME ONE Stop: 04/04/18 08:33 Last Admin: 04/04/18 09:16 Dose: 125 ml Morphine Sulfate (Morphine) 4 mg IVPUSH ONETIME ONE Stop: 04/04/18 06:51 Last Admin: 04/04/18 06:58 Dose: 4 mg Ondansetron HCl (Zofran) 4 mg IVPUSH ONETIME ONE Stop: 04/04/18 06:51 Last Admin: 04/04/18 06:58 Dose: 4 mg Sodium Chloride (Saline Flush) 10 ml FLUSH ONETIME ONE Stop: 04/04/18 08:33 Last Admin: 04/04/18 09:16 Dose: 10 ml - Problem List Review Problem List Initiated/Reviewed/Updated: Yes - My Orders Last 24 Hours: My Active Orders 04/05/18 Dinner Clear Liquid Diet [DIET] - Assessment Assessment:: He feels much better he has passed a small amt of gas. Still with abd soreness but imporved PE---less distended still with tenderness to deep palp on the rt upper quad labs reviewed wbc slightly inproved the lipase is pending afebrile IMPRESSION improving biliary pancreatitis. i discussed with mr. remy that he will need his gall bladder removed with the improvement in the pancreatitis. i explained that i will be leaving at noon and the Dr. Mukherjee will be taking over his care. He will determine the timing of the gall bladder remova. He seemed pleased with this ok for continuing the clear liquid time spent 10 minutes. - Plan Plan:: 48 yo male, with first episode of acute gallstone pancreatitis, with WBC of 13.8 , glucose of 190, and AST of 254. Based on initial laboratory data, patient has a Assumption score of 1. Tbili is wnl. The patient already received Dilaudid IV and NS 1 L bolus in the ER. Will give an additional [address] Abd/Pelvis images were reviewed. Inflammatory changes around the pancreas, with peripancreatic fluid. Radio-opaque gallstones are also seen. - Will admit to [facility]. - NPO - IV fluids at initial rate of 200 cc/hr, with strict I&O's. - Pain control with IV narcotics and IV acetaminophen. - Repeat labs in AM. - DVT prophylaxis: heparin 5000 units SQ TID. Patient will require cholecystectomy prior to discharge, but for now, will await for improvement in pancreatitis. The patient's care will be taken over by Dr. Le Hernandez tomorrow morning. The patient's images were reviewed with Dr. Hernandez, and the patient's clinical case was discussed. Progress note for Mr. Remy by Dr. Hernandez April 05, 2018 Mr Remy had a fairly comfortable night. Low grade fever of 100 voiding without problem but urine is dark No flatus. PE--lungs clear abd--there are occasional bs- still distended and tender in the epigastric area labs slightly improved lipase is pending IMP slightly improved biliary pancreatitis. I discussed with him that we want to wait with checo until his is improved unless things deteriorate i explained that he had a serious case of pancreatitis due to the gall bladder. PLAN will cont with serial exams. ok for clear liquids sparingly.
[2018-04-06] MEDS ORDERED: Bisacodyl 10 MG Supp RECTAL ONE (08:15)
[2018-04-06] MEDS ORDERED: Pantoprazole 40 MG in Sodium Chloride 0.9% 100 ML IV SCH (16:00)
[2018-04-06] MEDS: Pantoprazole 40 MG Vial IVPUSH SCH (17:09)
[2018-04-06] MEDS: Magnesium Oxide 400 MG Tab PO SCH ×2 (17:09→20:59)
[2018-04-06] MEDS: Potassium Chloride 20 MEQ Tab.ER PO SCH (20:59)
[2018-04-07] MEDS: Morphine PF 30 MG/30 ML PCA Vial IV SCH (00:44)
[2018-04-07] MEDS: Sodium Chloride 0.9% 1,000 ML IV SCH (00:45)
[2018-04-07] MEDS: Heparin Sodium 5,000 Units/ML Vial SUBCUT SCH ×3 (03:59→18:24)
[2018-04-07] MEDS: Loratadine 10 MG Tab PO SCH (09:01)
[2018-04-07] MEDS: Magnesium Oxide 400 MG Tab PO SCH ×2 (09:01→22:36)
[2018-04-07] MEDS: Potassium Chloride 20 MEQ Tab.ER PO SCH ×3 (09:01→22:36)
[2018-04-07] MEDS: Pantoprazole 40 MG Vial IVPUSH SCH (09:02)
[2018-04-07] MEDS ORDERED: Sodium Chloride 0.9% 10 ML Syringe FLUSH PRN (09:51)
[2018-04-07] MEDS ORDERED: Furosemide 20 MG Tab PO ONE (09:51)
--- NOTE | 2018-04-07 09:57 | PCM.SURGPN ---
- General Info Date of Service: 04/07/18 Functional Status: Reports: Pain Controlled, Tolerating Diet, Urinating - Review of Systems Gastrointestinal: Reports: Abdominal Pain (Much improved), Flatus - Patient Data Vitals - Most Recent: Last Vital Signs Temp 36.9 C 04/07/18 07:54 Pulse 98 04/07/18 07:54 Resp 18 04/07/18 07:54 BP 144/87 H 04/07/18 07:54 Pulse Ox 98 04/07/18 07:54 Weight - Most Recent: 88.961 kg I&O - Last 24 Hours: Intake & Output 04/06/18 04/07/18 04/07/18 22:59 06:59 14:59 Intake Total 1403 948 622 Output Total 950 800 500 Balance 453 148 122 Lab Results Last 24 Hrs: Laboratory Results - last 24 hr 04/07/18 04/07/18 Range/Units 06:20 06:20 WBC 12.31 H (4.23-9.07) K/mm3 RBC 3.92 L (4.63-6.08) M/mm3 Hgb 12.6 L (13.7-17.5) gm/L Hct 37.6 L (40.1-51.0) % MCV 95.9 H (79.0-92.2) fl MCH 32.1 (25.7-32.2) pg MCHC 33.5 (32.2-35.5) g/dl RDW Std Deviation 41.4 (35.1-43.9) fL Plt Count 214 (163-337) K/mm3 MPV 10.0 (9.4-12.3) fl Neut % (Auto) 77.7 H (34.0-67.9) % Lymph % (Auto) 9.3 L (21.8-53.1) % [place] % (Auto) 10.9 (5.3-12.2) % Eos % (Auto) 1.7 (0.8-7.0) Baso % (Auto) 0.2 (0.1-1.2) % Neut # (Auto) 9.57 H (1.78-5.38) K/mm3 Lymph # (Auto) 1.15 L (1.32-3.57) K/mm3 [place] # (Auto) 1.34 H (0.30-0.82) K/mm3 Eos # (Auto) 0.21 (0.04-0.54) K/mm3 Baso # (Auto) 0.02 (0.01-0.08) K/mm3 Manual Slide Review Abnormal smear Sodium 134 L (136-145) mEq/L Potassium 3.4 L (3.5-5.1) mEq/L Chloride 100 (98-107) mEq/L Carbon Dioxide 28 (21-32) mEq/L Anion Gap 9.4 (5-15) BUN 8 (7-18) mg/dL Creatinine 0.8 (0.7-1.3) mg/dL Est Cr Clr Drug Dosing 112.92 mL/min Estimated GFR (MDRD) > 60 (>60) mL/min BUN/Creatinine Ratio 10.0 L (14-18) Glucose 126 H (74-106) mg/dL Calcium 8.1 L (8.5-10.1) mg/dL Magnesium 1.9 (1.8-2.4) mg/dl Total Bilirubin 1.2 H (0.2-1.0) mg/dL AST 32 (15-37) U/L ALT 63 (16-63) U/L Alkaline Phosphatase 55 (46-116) U/L Total Protein 6.2 L (6.4-8.2) g/dl Albumin 2.5 L (3.4-5.0) g/dl Globulin 3.7 gm/dL Albumin/Globulin Ratio 0.7 L (1-2) Med Orders - Current: Current Medications Albuterol/Ipratropium (Duoneb 3.0-0.5 Mg/3 Ml) 3 ml NEB Q4H PRN PRN Reason: Shortness Of Breath/wheezing Heparin Sodium (Porcine) (Heparin Sodium) 5,000 units SUBCUT Q8H [facility] Last Admin: 04/07/18 03:59 Dose: 5,000 units Hydromorphone HCl (Dilaudid) 1 mg IVPUSH Q2H PRN PRN Reason: Pain Last Admin: 04/04/18 17:14 Dose: 1 mg Sodium Chloride (Normal Saline) 1,000 mls @ 40 mls/hr IV ASDIRECTED [facility] Last Admin: 04/07/18 00:45 Dose: 150 mls/hr Loratadine (Claritin) 10 mg PO DAILY [facility] Last Admin: 04/07/18 09:01 Dose: 10 mg Magnesium Oxide (Magnesium Oxide) 400 mg PO BID [facility] Last Admin: 04/07/18 09:01 Dose: 400 mg Morphine Sulfate (Morphine Legal Aide 30 Mg In 30 Ml) 30 mg IV ASDIRECTED [facility]; Protocol Last Admin: 04/07/18 00:44 Dose: 30 mg Ondansetron HCl (Zofran) 4 mg IVPUSH Q8H PRN PRN Reason: Nausea Last Admin: 04/04/18 16:43 Dose: 4 mg Pantoprazole Sodium (Protonix Iv) 40 mg IVPUSH DAILY [facility] Last Admin: 04/07/18 09:02 Dose: 40 mg Potassium Chloride (Klor-Con M20) 20 meq PO TID [facility] Last Admin: 04/07/18 09:01 Dose: 20 meq Discontinued Medications Bisacodyl (Dulcolax) 10 mg RECTAL ONETIME ONE Stop: 04/06/18 08:16 Last Admin: 04/06/18 08:36 Dose: 10 mg Hydromorphone HCl (Dilaudid) 0.5 mg IVPUSH ONETIME ONE Stop: 04/04/18 07:07 Last Admin: 04/04/18 07:14 Dose: 0.5 mg Hydromorphone HCl (Dilaudid) 1 mg IVPUSH ONETIME ONE Stop: 04/04/18 08:35 Last Admin: 04/04/18 08:39 Dose: 1 mg Hydromorphone HCl (Dilaudid) 1 mg IVPUSH ONETIME ONE Stop: 04/04/18 09:42 Last Admin: 04/04/18 09:47 Dose: 1 mg Hydromorphone HCl (Dilaudid) 1 mg IVPUSH ONETIME ONE Stop: 04/04/18 11:00 Last Admin: 04/04/18 11:05 Dose: 1 mg Sodium Chloride (Normal Saline) 1,000 mls @ 500 mls/hr IV ASDIRECTED [facility] Last Admin: 04/04/18 07:14 Dose: 500 mls/hr Sodium Chloride (Normal Saline) 1,000 mls @ 999 mls/hr IV ASDIRECTED [facility] Last Admin: 04/04/18 11:05 Dose: 999 mls/hr Sodium Chloride (Normal Saline) 1,000 mls @ 200 mls/hr IV [facility] Last Admin: 04/04/18 22:36 Dose: 200 mls/hr Acetaminophen (Ofirmev) 100 mls @ 400 mls/hr IV Q6H PRN PRN Reason: Pain Stop: 04/05/18 18:38 Last Admin: 04/04/18 19:57 Dose: 400 mls/hr Acetaminophen (Ofirmev) 100 mls @ 400 mls/hr IV Q6H PRN PRN Reason: Pain Stop: 04/06/18 02:01 Acetaminophen (Ofirmev) 100 mls @ 400 mls/hr IV NOW ONE Stop: 04/05/18 02:14 Acetaminophen (Ofirmev) 100 mls @ 400 mls/hr IV Q6H PRN PRN Reason: Pain Stop: 04/06/18 01:32 Pantoprazole Sodium 40 mg/ (Sodium Chloride) 100 mls @ 200 mls/hr IV DAILY [facility] Last Admin: 04/06/18 17:35 Dose: Not Given Iopamidol (Isovue-300 (61%)) 125 ml IVPUSH ONETIME ONE Stop: 04/04/18 08:33 Last Admin: 04/04/18 09:16 Dose: 125 ml Morphine Sulfate (Morphine) 4 mg IVPUSH ONETIME ONE Stop: 04/04/18 06:51 Last Admin: 04/04/18 06:58 Dose: 4 mg Ondansetron HCl (Zofran) 4 mg IVPUSH ONETIME ONE Stop: 04/04/18 06:51 Last Admin: 04/04/18 06:58 Dose: 4 mg Sodium Chloride (Saline Flush) 10 ml FLUSH ONETIME ONE Stop: 04/04/18 08:33 Last Admin: 04/04/18 09:16 Dose: 10 ml - Exam Quality Assessment: Supplemental Oxygen General: Alert, Oriented, Cooperative GI/Abdominal Exam: Distended Extremities: Pedal Edema Skin: Warm, Dry, Intact - Problem List Review Problem List Initiated/Reviewed/Updated: Yes - My Orders Last 24 Hours: Active Orders 24 hr Category Date Time Status Full Liquid Diet [DIET] Diet 04/06/18 Dinner Active Low Fat Diet [DIET] Diet 04/07/18 Lunch Active CBC WITH AUTO DIFF [HEME] AM Lab 04/08/18 05:11 Ordered CBC WITH AUTO DIFF [HEME] AM Lab 04/09/18 05:11 Ordered COMPREHENSIVE METABOLIC PN,CMP [CHEM] AM Lab 04/08/18 05:11 Ordered COMPREHENSIVE METABOLIC PN,CMP [CHEM] AM Lab 04/09/18 05:11 Ordered MAGNESIUM [CHEM] AM Lab 04/08/18 05:11 Ordered MAGNESIUM [CHEM] AM Lab 04/09/18 05:11 Ordered Furosemide [Lasix] Med 04/07/18 09:51 Once 20 mg PO ONETIME ONE Loratadine [Claritin] Med 04/07/18 09:00 Active 10 mg PO DAILY Magnesium Oxide Med 04/06/18 16:00 Active 400 mg PO BID Pantoprazole [ProTONIX IV] Med 04/06/18 16:15 Active 40 mg IVPUSH DAILY Potassium Chloride [Klor-Con M20] Med 04/06/18 21:00 Active 20 meq PO TID Sodium Chloride 0.9% [Saline Flush] Med 04/07/18 09:51 Ordered 10 ml FLUSH ASDIRECTED PRN Convert IV to Saline Lock [OM.PC] Routine Oth 04/07/18 09:51 Ordered Medication Orders Albuterol/Ipratropium (Duoneb 3.0-0.5 Mg/3 Ml) 3 ml NEB Q4H PRN PRN Reason: Shortness Of Breath/wheezing Heparin Sodium (Porcine) (Heparin Sodium) 5,000 units SUBCUT Q8H [facility] Last Admin: 04/07/18 03:59 Dose: 5,000 units Admin: 04/06/18 18:26 Dose: 5,000 units Admin: 04/06/18 11:42 Dose: 5,000 units Admin: 04/06/18 03:38 Dose: 5,000 units Admin: 04/05/18 19:07 Dose: 5,000 units Admin: 04/05/18 11:32 Dose: 5,000 units Admin: 04/05/18 03:41 Dose: 5,000 units Admin: 04/04/18 18:22 Dose: 5,000 units Admin: 04/04/18 12:21 Dose: 5,000 units Hydromorphone HCl (Dilaudid) 1 mg IVPUSH Q2H PRN PRN Reason: Pain Last Admin: 04/04/18 17:14 Dose: 1 mg Admin: 04/04/18 15:21 Dose: 1 mg Admin: 04/04/18 12:31 Dose: 1 mg Sodium Chloride (Normal Saline) 1,000 mls @ 40 mls/hr IV ASDIRECTED [facility] Last Admin: 04/07/18 00:45 Dose: 150 mls/hr Infusion: 04/06/18 19:37 Dose: 150 mls/hr Admin: 04/06/18 12:56 Dose: 150 mls/hr Infusion: 04/06/18 12:48 Dose: 150 mls/hr Admin: 04/06/18 06:07 Dose: 150 mls/hr Infusion: 04/06/18 06:07 Dose: 150 mls/hr Admin: 04/05/18 23:45 Dose: 150 mls/hr Infusion: 04/05/18 23:41 Dose: 150 mls/hr Admin: 04/05/18 17:00 Dose: 150 mls/hr Infusion: 04/05/18 17:00 Dose: 150 mls/hr Admin: 04/05/18 10:19 Dose: 150 mls/hr Infusion: 04/05/18 10:19 Dose: 150 mls/hr Admin: 04/05/18 03:40 Dose: 150 mls/hr Infusion: 04/05/18 03:40 Dose: 150 mls/hr Admin: 04/05/18 00:32 Dose: 150 mls/hr Loratadine (Claritin) 10 mg PO DAILY [facility] Last Admin: 04/07/18 09:01 Dose: 10 mg Magnesium Oxide (Magnesium Oxide) 400 mg PO BID [facility] Last Admin: 04/07/18 09:01 Dose: 400 mg Admin: 04/06/18 20:59 Dose: 400 mg Admin: 04/06/18 17:09 Dose: 400 mg Morphine Sulfate (Morphine Legal Aide 30 Mg In 30 Ml) 30 mg IV ASDIRECTED [facility]; Protocol Last Admin: 04/07/18 00:44 Dose: 30 mg Admin: 04/06/18 11:34 Dose: 30 mg Admin: 04/06/18 03:38 Dose: 30 mg Admin: 04/05/18 17:00 Dose: 30 mg Admin: 04/05/18 08:40 Dose: 30 mg Admin: 04/04/18 23:50 Dose: 30 mg Admin: 04/04/18 18:11 Dose: 30 mg Ondansetron HCl (Zofran) 4 mg IVPUSH Q8H PRN PRN Reason: Nausea Last Admin: 04/04/18 16:43 Dose: 4 mg Pantoprazole Sodium (Protonix Iv) 40 mg IVPUSH DAILY [facility] Last Admin: 04/07/18 09:02 Dose: 40 mg Admin: 04/06/18 17:09 Dose: 40 mg Potassium Chloride (Klor-Con M20) 20 meq PO TID [facility] Last Admin: 04/07/18 09:01 Dose: 20 meq Admin: 04/06/18 20:59 Dose: 20 meq - Assessment Assessment (Free Text/Narrative):: Stable O2 sats overnight running 92-93%. Adynamic ileus. Hypomagnesemia. Hypokalemia. Fluid overload. Evolving pancreatitis stable. - Plan Plan (Free Text/Narrative):: Correcting fluid and electrolyte abnormalities that will stabilize his pulmonary and GI physiology. Plan cholecystectomy on Tuesday.
[2018-04-07] MEDS: HYDROmorphone 0.5 MG/0.5 ML SYRINGE IVPUSH PRN ×4 (12:41→22:32)
[2018-04-08] MEDS: Heparin Sodium 5,000 Units/ML Vial SUBCUT SCH ×3 (03:07→18:48)
[2018-04-08] MEDS: HYDROmorphone 0.5 MG/0.5 ML SYRINGE IVPUSH PRN ×4 (03:07→13:37)
[2018-04-08] MEDS ORDERED: Potassium Chloride 20 MEQ Tab.ER PO ONE (08:05)
--- NOTE | 2018-04-08 08:10 | PCM.SURGPN ---
- General Info Date of Service: 04/08/18 Functional Status: Reports: Pain Controlled, Tolerating Diet, Ambulating, Urinating - Patient Data Vitals - Most Recent: Last Vital Signs Temp 37.1 C 04/08/18 03:50 Pulse 98 04/08/18 03:16 Resp 14 04/08/18 03:16 BP 130/83 04/08/18 03:16 Pulse Ox 93 L 04/08/18 03:16 Weight - Most Recent: 86.228 kg I&O - Last 24 Hours: Intake & Output 04/07/18 04/08/18 04/08/18 22:59 06:59 14:59 Intake Total 950 250 Output Total 1275 825 Balance -325 -575 Lab Results Last 24 Hrs: Laboratory Results - last 24 hr 04/08/18 04/08/18 Range/Units 05:23 05:23 WBC 12.81 H (4.23-9.07) K/mm3 RBC 3.81 L (4.63-6.08) M/mm3 Hgb 12.2 L (13.7-17.5) gm/L Hct 36.2 L (40.1-51.0) % MCV 95.0 H (79.0-92.2) fl MCH 32.0 (25.7-32.2) pg MCHC 33.7 (32.2-35.5) g/dl RDW Std Deviation 40.8 (35.1-43.9) fL Plt Count 255 (163-337) K/mm3 MPV 9.7 (9.4-12.3) fl Neut % (Auto) 76.5 H (34.0-67.9) % Lymph % (Auto) 8.2 L (21.8-53.1) % [place] % (Auto) 11.9 (5.3-12.2) % Eos % (Auto) 3.0 (0.8-7.0) Baso % (Auto) 0.2 (0.1-1.2) % Neut # (Auto) 9.79 H (1.78-5.38) K/mm3 Lymph # (Auto) 1.05 L (1.32-3.57) K/mm3 [place] # (Auto) 1.53 H (0.30-0.82) K/mm3 Eos # (Auto) 0.39 (0.04-0.54) K/mm3 Baso # (Auto) 0.02 (0.01-0.08) K/mm3 Manual Slide Review Abnormal smear Sodium 135 L (136-145) mEq/L Potassium 3.5 (3.5-5.1) mEq/L Chloride 100 (98-107) mEq/L Carbon Dioxide 28 (21-32) mEq/L Anion Gap 10.5 (5-15) BUN 10 (7-18) mg/dL Creatinine 0.7 (0.7-1.3) mg/dL Est Cr Clr Drug Dosing 129.06 mL/min Estimated GFR (MDRD) > 60 (>60) mL/min BUN/Creatinine Ratio 14.3 (14-18) Glucose 139 H (74-106) mg/dL Calcium 8.4 L (8.5-10.1) mg/dL Magnesium 2.2 (1.8-2.4) mg/dl Total Bilirubin 0.9 (0.2-1.0) mg/dL AST 31 (15-37) U/L ALT 54 (16-63) U/L Alkaline Phosphatase 62 (46-116) U/L Total Protein 6.3 L (6.4-8.2) g/dl Albumin 2.6 L (3.4-5.0) g/dl Globulin 3.7 gm/dL Albumin/Globulin Ratio 0.7 L (1-2) Med Orders - Current: Current Medications Albuterol/Ipratropium (Duoneb 3.0-0.5 Mg/3 Ml) 3 ml NEB Q4H PRN PRN Reason: Shortness Of Breath/wheezing Furosemide (Lasix) 20 mg PO Q8H [facility] Heparin Sodium (Porcine) (Heparin Sodium) 5,000 units SUBCUT Q8H [facility] Last Admin: 04/08/18 03:07 Dose: 5,000 units Hydromorphone HCl (Dilaudid) 1 mg IVPUSH Q2H PRN PRN Reason: Pain Last Admin: 04/08/18 06:56 Dose: 1 mg Loratadine (Claritin) 10 mg PO DAILY [facility] Last Admin: 04/07/18 09:01 Dose: 10 mg Magnesium Oxide (Magnesium Oxide) 400 mg PO BID [facility] Last Admin: 04/07/18 22:36 Dose: 400 mg Ondansetron HCl (Zofran) 4 mg IVPUSH Q8H PRN PRN Reason: Nausea Last Admin: 04/04/18 16:43 Dose: 4 mg Pantoprazole Sodium (Protonix Iv) 40 mg IVPUSH DAILY [facility] Last Admin: 04/07/18 09:02 Dose: 40 mg Potassium Chloride (Klor-Con M20) 20 meq PO TID [facility] Last Admin: 04/07/18 22:36 Dose: 20 meq Potassium Chloride (Klor-Con M20) 40 meq PO ONETIME ONE Stop: 04/08/18 08:06 Sodium Chloride (Saline Flush) 10 ml FLUSH ASDIRECTED PRN PRN Reason: Keep Vein Open Discontinued Medications Bisacodyl (Dulcolax) 10 mg RECTAL ONETIME ONE Stop: 04/06/18 08:16 Last Admin: 04/06/18 08:36 Dose: 10 mg Furosemide (Lasix) 20 mg PO ONETIME ONE Stop: 04/07/18 09:52 Last Admin: 04/07/18 10:11 Dose: 20 mg Hydromorphone HCl (Dilaudid) 0.5 mg IVPUSH ONETIME ONE Stop: 04/04/18 07:07 Last Admin: 04/04/18 07:14 Dose: 0.5 mg Hydromorphone HCl (Dilaudid) 1 mg IVPUSH ONETIME ONE Stop: 04/04/18 08:35 Last Admin: 04/04/18 08:39 Dose: 1 mg Hydromorphone HCl (Dilaudid) 1 mg IVPUSH ONETIME ONE Stop: 04/04/18 09:42 Last Admin: 04/04/18 09:47 Dose: 1 mg Hydromorphone HCl (Dilaudid) 1 mg IVPUSH ONETIME ONE Stop: 04/04/18 11:00 Last Admin: 04/04/18 11:05 Dose: 1 mg Sodium Chloride (Normal Saline) 1,000 mls @ 500 mls/hr IV ASDIRECTED [facility] Last Admin: 04/04/18 07:14 Dose: 500 mls/hr Sodium Chloride (Normal Saline) 1,000 mls @ 999 mls/hr IV ASDIRECTED [facility] Last Admin: 04/04/18 11:05 Dose: 999 mls/hr Sodium Chloride (Normal Saline) 1,000 mls @ 200 mls/hr IV ASDIRECTED [facility] Last Admin: 04/04/18 22:36 Dose: 200 mls/hr Acetaminophen (Ofirmev) 100 mls @ 400 mls/hr IV Q6H PRN PRN Reason: Pain Stop: 04/05/18 18:38 Last Admin: 04/04/18 19:57 Dose: 400 mls/hr Sodium Chloride (Normal Saline) 1,000 mls @ 40 mls/hr IV ASDIRECTED [facility] Last Admin: 04/07/18 00:45 Dose: 150 mls/hr Acetaminophen (Ofirmev) 100 mls @ 400 mls/hr IV Q6H PRN PRN Reason: Pain Stop: 04/06/18 02:01 Acetaminophen (Ofirmev) 100 mls @ 400 mls/hr IV NOW ONE Stop: 04/05/18 02:14 Acetaminophen (Ofirmev) 100 mls @ 400 mls/hr IV Q6H PRN PRN Reason: Pain Stop: 04/06/18 01:32 Pantoprazole Sodium 40 mg/ (Sodium Chloride) 100 mls @ 200 mls/hr IV DAILY [facility] Last Admin: 04/06/18 17:35 Dose: Not Given Iopamidol (Isovue-300 (61%)) 125 ml IVPUSH ONETIME ONE Stop: 04/04/18 08:33 Last Admin: 04/04/18 09:16 Dose: 125 ml Morphine Sulfate (Morphine) 4 mg IVPUSH ONETIME ONE Stop: 04/04/18 06:51 Last Admin: 04/04/18 06:58 Dose: 4 mg Morphine Sulfate (Morphine [employer] 30 Mg In 30 Ml) 30 mg IV ASDIRECTED [facility]; Protocol Last Admin: 04/07/18 00:44 Dose: 30 mg Ondansetron HCl (Zofran) 4 mg IVPUSH ONETIME ONE Stop: 04/04/18 06:51 Last Admin: 04/04/18 06:58 Dose: 4 mg Sodium Chloride (Saline Flush) 10 ml FLUSH ONETIME ONE Stop: 04/04/18 08:33 Last Admin: 04/04/18 09:16 Dose: 10 ml - Exam GI/Abdominal Exam: Soft, Distended (But less than yesterday) - Problem List Review Problem List Initiated/Reviewed/Updated: Yes - My Orders Last 24 Hours: Active Orders 24 hr Category Date Time Status Low Fat Diet [DIET] Diet 04/07/18 Lunch Active CBC WITH AUTO DIFF [HEME] AM Lab 04/09/18 05:11 Ordered COMPREHENSIVE METABOLIC PN,CMP [CHEM] AM Lab 04/09/18 05:11 Ordered LIPASE [CHEM] Routine Lab 04/08/18 08:03 Ordered MAGNESIUM [CHEM] AM Lab 04/09/18 05:11 Ordered Furosemide [Lasix] Med 04/08/18 08:15 Ordered 20 mg PO Q8H Loratadine [Claritin] Med 04/07/18 09:00 Active 10 mg PO DAILY Potassium Chloride [Klor-Con M20] Med 04/08/18 08:05 Once 40 meq PO ONETIME ONE Sodium Chloride 0.9% [Saline Flush] Med 04/07/18 09:51 Active 10 ml FLUSH ASDIRECTED PRN Convert IV to Saline Lock [OM.PC] Routine Oth 04/07/18 09:51 Ordered Medication Orders Albuterol/Ipratropium (Duoneb 3.0-0.5 Mg/3 Ml) 3 ml NEB Q4H PRN PRN Reason: Shortness Of Breath/wheezing Furosemide (Lasix) 20 mg PO Q8H [facility] Heparin Sodium (Porcine) (Heparin Sodium) 5,000 units SUBCUT Q8H [facility] Last Admin: 04/08/18 03:07 Dose: 5,000 units Admin: 04/07/18 18:24 Dose: 5,000 units Admin: 04/07/18 10:15 Dose: 5,000 units Admin: 04/07/18 03:59 Dose: 5,000 units Admin: 04/06/18 18:26 Dose: 5,000 units Admin: 04/06/18 11:42 Dose: 5,000 units Admin: 04/06/18 03:38 Dose: 5,000 units Admin: 04/05/18 19:07 Dose: 5,000 units Admin: 04/05/18 11:32 Dose: 5,000 units Admin: 04/05/18 03:41 Dose: 5,000 units Admin: 04/04/18 18:22 Dose: 5,000 units Admin: 04/04/18 12:21 Dose: 5,000 units Hydromorphone HCl (Dilaudid) 1 mg IVPUSH Q2H PRN PRN Reason: Pain Last Admin: 04/08/18 06:56 Dose: 1 mg Admin: 04/08/18 03:07 Dose: 1 mg Admin: 04/07/18 22:32 Dose: 1 mg Admin: 04/07/18 19:55 Dose: 1 mg Admin: 04/07/18 16:59 Dose: 1 mg Admin: 04/07/18 12:41 Dose: 1 mg Admin: 04/04/18 17:14 Dose: 1 mg Admin: 04/04/18 15:21 Dose: 1 mg Admin: 04/04/18 12:31 Dose: 1 mg Loratadine (Claritin) 10 mg PO DAILY [facility] Last Admin: 04/07/18 09:01 Dose: 10 mg Magnesium Oxide (Magnesium Oxide) 400 mg PO BID [facility] Last Admin: 04/07/18 22:36 Dose: 400 mg Admin: 04/07/18 09:01 Dose: 400 mg Admin: 04/06/18 20:59 Dose: 400 mg Admin: 04/06/18 17:09 Dose: 400 mg Ondansetron HCl (Zofran) 4 mg IVPUSH Q8H PRN PRN Reason: Nausea Last Admin: 04/04/18 16:43 Dose: 4 mg Pantoprazole Sodium (Protonix Iv) 40 mg IVPUSH DAILY [facility] Last Admin: 04/07/18 09:02 Dose: 40 mg Admin: 04/06/18 17:09 Dose: 40 mg Potassium Chloride (Klor-Con M20) 20 meq PO TID [facility] Last Admin: 04/07/18 22:36 Dose: 20 meq Admin: 04/07/18 14:04 Dose: 20 meq Admin: 04/07/18 09:01 Dose: 20 meq Admin: 04/06/18 20:59 Dose: 20 meq Potassium Chloride (Klor-Con M20) 40 meq PO ONETIME ONE Stop: 04/08/18 08:06 Sodium Chloride (Saline Flush) 10 ml FLUSH ASDIRECTED PRN PRN Reason: Keep Vein Open - Assessment Assessment (Free Text/Narrative):: Magnesium and potassium corrected. Good response with Lasix yesterday. Pleased to see that his oxygen saturations are stabilizing and rising allowing for reduction in O2 delivery via nasal cannula. This suggests that his fluid overload is reversing. - Plan Plan (Free Text/Narrative):: Continuing to optimize preop clinical status for laparoscopic cholecystectomy on Tuesday. Checking lipase today.
[2018-04-08] MEDS: Potassium Chloride 20 MEQ Tab.ER PO SCH ×3 (08:47→20:32)
[2018-04-08] MEDS: Furosemide 20 MG Tab PO SCH ×2 (08:48→16:13)
[2018-04-08] MEDS: Pantoprazole 40 MG Vial IVPUSH SCH (08:48)
[2018-04-08] MEDS: Magnesium Oxide 400 MG Tab PO SCH ×2 (08:48→20:32)
[2018-04-08] MEDS: Loratadine 10 MG Tab PO SCH (08:48)
[2018-04-08] MEDS ORDERED: Magnesium Hydroxide 400 MG/5 ML Susp 30 ML Cup PO ONE (13:23)
[2018-04-08] MEDS: Acetaminophen/oxyCODONE 325-5 MG Tab PO PRN ×2 (16:14→20:33)
[2018-04-08] MEDS ORDERED: Bisacodyl 10 MG Supp RECTAL ONE (21:00)
[2018-04-09] MEDS: Furosemide 20 MG Tab PO SCH ×2 (01:10→08:57)
[2018-04-09] MEDS: Heparin Sodium 5,000 Units/ML Vial SUBCUT SCH ×3 (03:33→18:24)
[2018-04-09] MEDS: Acetaminophen/oxyCODONE 325-5 MG Tab PO PRN ×2 (06:35→16:41)
[2018-04-09] MEDS ORDERED: Bisacodyl 10 MG Supp RECTAL ONE (06:38)
[2018-04-09] MEDS ORDERED: Bisacodyl 10 MG Supp RECTAL PRN (06:45)
[2018-04-09] MEDS: Pantoprazole 40 MG Vial IVPUSH SCH (08:57)
[2018-04-09] MEDS: Magnesium Oxide 400 MG Tab PO SCH ×2 (08:57→20:05)
[2018-04-09] MEDS: Loratadine 10 MG Tab PO SCH (08:57)
[2018-04-09] MEDS: Potassium Chloride 20 MEQ Tab.ER PO SCH (08:57)
--- NOTE | 2018-04-09 09:02 | PCM.SURGPN ---
- General Info Date of Service: 04/09/18 Functional Status: Reports: Pain Controlled (Requiring less analgesics), Tolerating Diet (Patient proceeding slowly as recommended), Ambulating, Urinating, Incentive Spirometry - Review of Systems Gastrointestinal: Reports: Flatus - Patient Data Vitals - Most Recent: Last Vital Signs Temp 36.9 C 04/09/18 03:31 Pulse 87 04/09/18 03:31 Resp 12 04/09/18 03:31 BP 139/89 04/09/18 03:31 Pulse Ox 94 L 04/09/18 03:31 Weight - Most Recent: 81.647 kg I&O - Last 24 Hours: Intake & Output 04/08/18 04/09/18 04/09/18 22:59 06:59 14:59 Intake Total 750 350 Output Total 1250 450 300 Balance -500 -100 -300 Lab Results Last 24 Hrs: Laboratory Results - last 24 hr 04/09/18 04/09/18 Range/Units 04:50 04:50 WBC 13.12 H (4.23-9.07) K/mm3 RBC 4.14 L (4.63-6.08) M/mm3 Hgb 13.6 L (13.7-17.5) gm/L Hct 39.3 L (40.1-51.0) % MCV 94.9 H (79.0-92.2) fl MCH 32.9 H (25.7-32.2) pg MCHC 34.6 (32.2-35.5) g/dl RDW Std Deviation 41.9 (35.1-43.9) fL Plt Count 288 (163-337) K/mm3 MPV 9.5 (9.4-12.3) fl Neut % (Auto) 71.4 H (34.0-67.9) % Lymph % (Auto) 10.5 L (21.8-53.1) % [place] % (Auto) 13.6 H (5.3-12.2) % Eos % (Auto) 4.3 (0.8-7.0) Baso % (Auto) 0.2 (0.1-1.2) % Neut # (Auto) 9.36 H (1.78-5.38) K/mm3 Lymph # (Auto) 1.38 (1.32-3.57) K/mm3 [place] # (Auto) 1.78 H (0.30-0.82) K/mm3 Eos # (Auto) 0.57 H (0.04-0.54) K/mm3 Baso # (Auto) 0.03 (0.01-0.08) K/mm3 Manual Slide Review Abnormal smear Sodium 134 L (136-145) mEq/L Potassium 4.0 (3.5-5.1) mEq/L Chloride 100 (98-107) mEq/L Carbon Dioxide 27 (21-32) mEq/L Anion Gap 11.0 (5-15) BUN 12 (7-18) mg/dL Creatinine 0.9 (0.7-1.3) mg/dL Est Cr Clr Drug Dosing 100.38 mL/min Estimated GFR (MDRD) > 60 (>60) mL/min BUN/Creatinine Ratio 13.3 L (14-18) Glucose 136 H (74-106) mg/dL Calcium 8.7 (8.5-10.1) mg/dL Magnesium 2.0 (1.8-2.4) mg/dl Total Bilirubin 0.9 (0.2-1.0) mg/dL AST 70 H (15-37) U/L ALT 90 H (16-63) U/L Alkaline Phosphatase 102 (46-116) U/L Total Protein 6.9 (6.4-8.2) g/dl Albumin 2.7 L (3.4-5.0) g/dl Globulin 4.2 gm/dL Albumin/Globulin Ratio 0.6 L (1-2) Med Orders - Current: Current Medications Albuterol/Ipratropium (Duoneb 3.0-0.5 Mg/3 Ml) 3 ml NEB Q4H PRN PRN Reason: Shortness Of Breath/wheezing Bisacodyl (Dulcolax) 10 mg RECTAL DAILY PRN PRN Reason: Constipation Furosemide (Lasix) 20 mg PO DAILY [facility] Heparin Sodium (Porcine) (Heparin Sodium) 5,000 units SUBCUT Q8H [facility] Last Admin: 04/09/18 03:33 Dose: 5,000 units Hydromorphone HCl (Dilaudid) 1 mg IVPUSH Q2H PRN PRN Reason: Pain Last Admin: 04/08/18 13:37 Dose: 1 mg Loratadine (Claritin) 10 mg PO DAILY [facility] Last Admin: 04/09/18 08:57 Dose: 10 mg Magnesium Oxide (Magnesium Oxide) 400 mg PO BID [facility] Last Admin: 04/09/18 08:57 Dose: 400 mg Ondansetron HCl (Zofran) 4 mg IVPUSH Q8H PRN PRN Reason: Nausea Last Admin: 04/04/18 16:43 Dose: 4 mg Oxycodone/Acetaminophen (Percocet 325-5 Mg) 2 tab PO Q4H PRN PRN Reason: Pain Last Admin: 04/09/18 06:35 Dose: 2 tab Pantoprazole Sodium (Protonix) 40 mg PO BEDTIME [facility] Sodium Chloride (Saline Flush) 10 ml FLUSH ASDIRECTED PRN PRN Reason: Keep Vein Open Last Admin: 04/08/18 08:48 Dose: 10 ml Discontinued Medications Bisacodyl (Dulcolax) 10 mg RECTAL ONETIME ONE Stop: 04/06/18 08:16 Last Admin: 04/06/18 08:36 Dose: 10 mg Bisacodyl (Dulcolax) 10 mg RECTAL ONETIME ONE Stop: 04/08/18 21:01 Last Admin: 04/08/18 20:31 Dose: Not Given Bisacodyl (Dulcolax) 10 mg RECTAL ONETIME ONE Stop: 04/09/18 06:39 Last Admin: 04/09/18 06:54 Dose: 10 mg Furosemide (Lasix) 20 mg PO ONETIME ONE Stop: 04/07/18 09:52 Last Admin: 04/07/18 10:11 Dose: 20 mg Furosemide (Lasix) 20 mg PO Q8H [facility] Last Admin: 04/09/18 08:57 Dose: 20 mg Hydromorphone HCl (Dilaudid) 0.5 mg IVPUSH ONETIME ONE Stop: 04/04/18 07:07 Last Admin: 04/04/18 07:14 Dose: 0.5 mg Hydromorphone HCl (Dilaudid) 1 mg IVPUSH ONETIME ONE Stop: 04/04/18 08:35 Last Admin: 04/04/18 08:39 Dose: 1 mg Hydromorphone HCl (Dilaudid) 1 mg IVPUSH ONETIME ONE Stop: 04/04/18 09:42 Last Admin: 04/04/18 09:47 Dose: 1 mg Hydromorphone HCl (Dilaudid) 1 mg IVPUSH ONETIME ONE Stop: 04/04/18 11:00 Last Admin: 04/04/18 11:05 Dose: 1 mg Sodium Chloride (Normal Saline) 1,000 mls @ 500 mls/hr IV ASDIRECTED [facility] Last Admin: 04/04/18 07:14 Dose: 500 mls/hr Sodium Chloride (Normal Saline) 1,000 mls @ 999 mls/hr IV ASDIRECTED [facility] Last Admin: 04/04/18 11:05 Dose: 999 mls/hr Sodium Chloride (Normal Saline) 1,000 mls @ 200 mls/hr IV ASDIRECTED [facility] Last Admin: 04/04/18 22:36 Dose: 200 mls/hr Acetaminophen (Ofirmev) 100 mls @ 400 mls/hr IV Q6H PRN PRN Reason: Pain Stop: 04/05/18 18:38 Last Admin: 04/04/18 19:57 Dose: 400 mls/hr Sodium Chloride (Normal Saline) 1,000 mls @ 40 mls/hr IV ASDIRECTED [facility] Last Admin: 04/07/18 00:45 Dose: 150 mls/hr Acetaminophen (Ofirmev) 100 mls @ 400 mls/hr IV Q6H PRN PRN Reason: Pain Stop: 04/06/18 02:01 Acetaminophen (Ofirmev) 100 mls @ 400 mls/hr IV NOW ONE Stop: 04/05/18 02:14 Acetaminophen (Ofirmev) 100 mls @ 400 mls/hr IV Q6H PRN PRN Reason: Pain Stop: 04/06/18 01:32 Pantoprazole Sodium 40 mg/ (Sodium Chloride) 100 mls @ 200 mls/hr IV DAILY [facility] Last Admin: 04/06/18 17:35 Dose: Not Given Iopamidol (Isovue-300 (61%)) 125 ml IVPUSH ONETIME ONE Stop: 04/04/18 08:33 Last Admin: 04/04/18 09:16 Dose: 125 ml Magnesium Hydroxide (Milk Of Magnesia) 30 ml PO ONETIME ONE Stop: 04/08/18 13:24 Last Admin: 04/08/18 13:36 Dose: 30 ml Morphine Sulfate (Morphine) 4 mg IVPUSH ONETIME ONE Stop: 04/04/18 06:51 Last Admin: 04/04/18 06:58 Dose: 4 mg Morphine Sulfate (Morphine [place] 30 Mg In 30 Ml) 30 mg IV ASDIRECTED [facility]; Protocol Last Admin: 04/07/18 00:44 Dose: 30 mg Ondansetron HCl (Zofran) 4 mg IVPUSH ONETIME ONE Stop: 04/04/18 06:51 Last Admin: 04/04/18 06:58 Dose: 4 mg Pantoprazole Sodium (Protonix Iv) 40 mg IVPUSH DAILY [facility] Last Admin: 04/09/18 08:57 Dose: 40 mg Potassium Chloride (Klor-Con M20) 20 meq PO TID [facility] Last Admin: 04/09/18 08:57 Dose: 20 meq Potassium Chloride (Klor-Con M20) 40 meq PO ONETIME ONE Stop: 04/08/18 08:06 Last Admin: 04/08/18 08:47 Dose: 40 meq Sodium Chloride (Saline Flush) 10 ml FLUSH ONETIME ONE Stop: 04/04/18 08:33 Last Admin: 04/04/18 09:16 Dose: 10 ml - Exam GI/Abdominal Exam: Soft, Non-Tender - Problem List Review Problem List Initiated/Reviewed/Updated: Yes - My Orders Last 24 Hours: Active Orders 24 hr Category Date Time Status Incentive Spirometry [RT Incentive Spirometry] [RC] Care 04/08/18 14:18 Active Q1HWA Verify Patient Consent Obtain [RC] ASDIRECTED Care 04/09/18 08:56 Ordered Nothing per Oral After Midnight Diet [DIET] Diet 04/09/18 Lunch Ordered Acetaminophen/oxyCODONE [Percocet 325-5 MG] Med 04/08/18 14:19 Active 2 tab PO Q4H PRN Bisacodyl [Dulcolax] Med 04/09/18 06:45 Active 10 mg RECTAL DAILY PRN Furosemide [Lasix] Med 04/09/18 09:00 Ordered 20 mg PO DAILY Pantoprazole [ProTONIX] Med 04/09/18 21:00 Ordered 40 mg PO BEDTIME Schedule Procedure [COMM] Routine Oth 04/09/18 08:57 Ordered Medication Orders Albuterol/Ipratropium (Duoneb 3.0-0.5 Mg/3 Ml) 3 ml NEB Q4H PRN PRN Reason: Shortness Of Breath/wheezing Bisacodyl (Dulcolax) 10 mg RECTAL DAILY PRN PRN Reason: Constipation Furosemide (Lasix) 20 mg PO DAILY [facility] Heparin Sodium (Porcine) (Heparin Sodium) 5,000 units SUBCUT Q8H [facility] Last Admin: 04/09/18 03:33 Dose: 5,000 units Admin: 04/08/18 18:48 Dose: 5,000 units Admin: 04/08/18 11:09 Dose: 5,000 units Admin: 04/08/18 03:07 Dose: 5,000 units Admin: 04/07/18 18:24 Dose: 5,000 units Admin: 04/07/18 10:15 Dose: 5,000 units Admin: 04/07/18 03:59 Dose: 5,000 units Admin: 04/06/18 18:26 Dose: 5,000 units Admin: 04/06/18 11:42 Dose: 5,000 units Admin: 04/06/18 03:38 Dose: 5,000 units Admin: 04/05/18 19:07 Dose: 5,000 units Admin: 04/05/18 11:32 Dose: 5,000 units Admin: 04/05/18 03:41 Dose: 5,000 units Admin: 04/04/18 18:22 Dose: 5,000 units Admin: 04/04/18 12:21 Dose: 5,000 units Hydromorphone HCl (Dilaudid) 1 mg IVPUSH Q2H PRN PRN Reason: Pain Last Admin: 04/08/18 13:37 Dose: 1 mg Admin: 04/08/18 11:09 Dose: 1 mg Admin: 04/08/18 06:56 Dose: 1 mg Admin: 04/08/18 03:07 Dose: 1 mg Admin: 04/07/18 22:32 Dose: 1 mg Admin: 04/07/18 19:55 Dose: 1 mg Admin: 04/07/18 16:59 Dose: 1 mg Admin: 04/07/18 12:41 Dose: 1 mg Admin: 04/04/18 17:14 Dose: 1 mg Admin: 04/04/18 15:21 Dose: 1 mg Admin: 04/04/18 12:31 Dose: 1 mg Loratadine (Claritin) 10 mg PO DAILY [facility] Last Admin: 04/09/18 08:57 Dose: 10 mg Admin: 04/08/18 08:48 Dose: 10 mg Admin: 04/07/18 09:01 Dose: 10 mg Magnesium Oxide (Magnesium Oxide) 400 mg PO BID [facility] Last Admin: 04/09/18 08:57 Dose: 400 mg Admin: 04/08/18 20:32 Dose: 400 mg Admin: 04/08/18 08:48 Dose: 400 mg Admin: 04/07/18 22:36 Dose: 400 mg Admin: 04/07/18 09:01 Dose: 400 mg Admin: 04/06/18 20:59 Dose: 400 mg Admin: 04/06/18 17:09 Dose: 400 mg Ondansetron HCl (Zofran) 4 mg IVPUSH Q8H PRN PRN Reason: Nausea Last Admin: 04/04/18 16:43 Dose: 4 mg Oxycodone/Acetaminophen (Percocet 325-5 Mg) 2 tab PO Q4H PRN PRN Reason: Pain Last Admin: 04/09/18 06:35 Dose: 2 tab Admin: 04/08/18 20:33 Dose: 2 tab Admin: 04/08/18 16:14 Dose: 2 tab Pantoprazole Sodium (Protonix) 40 mg PO BEDTIME [facility] Sodium Chloride (Saline Flush) 10 ml FLUSH ASDIRECTED PRN PRN Reason: Keep Vein Open Last Admin: 04/08/18 08:48 Dose: 10 ml - Assessment Assessment (Free Text/Narrative):: Doing quite well. Off of O2 supplementation since his pulmonary status has improved significantly. He's beginning to have bowel movements. His pancreatic lipase is much improved. Ready for laparoscopic cholecystectomy possible open tomorrow. - Plan Plan (Free Text/Narrative):: Surgery tomorrow. I discussed the benefits risks and alternatives of the planned procedure with the patient and he wants to proceed without reservation after having all of his questions answered. I discussed alcohol in the setting of pancreatitis with the patient as well.
[2018-04-09] MEDS ORDERED: Magnesium Hydroxide 400 MG/5 ML Susp 30 ML Cup PO ONE (10:48)
[2018-04-09] MEDS: Ertapenem 1 GM in Sodium Chloride 0.9% 100 ML IV SCH (18:25)
[2018-04-09] MEDS: Pantoprazole 40 MG Tab.CR PO SCH (20:05)
[2018-04-10] MEDS: Heparin Sodium 5,000 Units/ML Vial SUBCUT SCH ×3 (04:10→18:23)
[2018-04-10] MEDS: Acetaminophen/oxyCODONE 325-5 MG Tab PO PRN ×2 (05:28→20:10)
[2018-04-10] MEDS ORDERED: Rocuronium 50 MG/5 ML Vial ONE (07:30)
[2018-04-10] MEDS ORDERED: Ondansetron 4 MG/2 ML SDV ONE (07:30)
[2018-04-10] MEDS ORDERED: Propofol 200 MG/20 ML SDV ONE ×2 (07:30→09:45)
[2018-04-10] MEDS ORDERED: Lidocaine 1% 4 ML ONE (07:30)
[2018-04-10] MEDS ORDERED: fentaNYL 250 MCG/5 ML SDV ONE (07:31)
[2018-04-10] MEDS ORDERED: Midazolam 1 MG/ML 2 ML SDV ONE (07:31)
--- NOTE | 2018-04-10 07:36 | PCM.PREANE ---
Preanesthetic Assessment - Procedure Proposed Procedure: Laparoscopic Cholecystectomy - Anesthesia/Transfusion/Family Hx Anesthesia History: Prior Anesthesia Without Reaction Family History of Anesthesia Reaction: No Transfusion History: No Prior Transfusion(s) - Review of Systems General: Fever, Fatigue, Chills, Night Sweats Pulmonary: Other (Former Smoker) Cardiovascular: No Symptoms Gastrointestinal: Abdominal Pain, Nausea Neurological: Headache (with allergies/sinus congestion/no headache today) Other: Reports: Sinus Problem - Physical Assessment NPO Status Date: 04/10/18 NPO Status Time: 05:35 (Sip of water with pain meds) Pulse: 92 O2 Sat by Pulse Oximetry: 95 Respiratory Rate: 18 Blood Pressure: 137/88 Temperature: 37.5 C Vital Signs: Last Vital Signs Temp 37.5 C 04/10/18 04:11 Pulse 92 04/10/18 04:11 Resp 18 04/10/18 04:11 BP 137/88 04/10/18 04:11 Pulse Ox 95 04/10/18 04:11 Height: 1.75 m Weight: 79.56 kg ASA Class: 2 Mental Status: Alert & Oriented x3 Airway Class: Mallampati = 2 Dentition: Reports: Normal Dentition Thyro-Mental Finger Breadths: 3 Mouth Opening Finger Breadths: 3 ROM/Head Extension: Full Lungs: Clear to Auscultation, Normal Respiratory Effort Cardiovascular: Regular Rate, Regular Rhythm - Lab Values: Laboratory Last Values WBC 13.12 K/mm3 (4.23-9.07) H 04/09/18 04:50 RBC 4.14 M/mm3 (4.63-6.08) L 04/09/18 04:50 Hgb 13.6 gm/L (13.7-17.5) L 04/09/18 04:50 Hct 39.3 % (40.1-51.0) L 04/09/18 04:50 MCV 94.9 fl (79.0-92.2) H 04/09/18 04:50 MCH 32.9 pg (25.7-32.2) H 04/09/18 04:50 MCHC 34.6 g/dl (32.2-35.5) 04/09/18 04:50 RDW Std Deviation 41.9 fL (35.1-43.9) 04/09/18 04:50 Plt Count 288 K/mm3 (163-337) 04/09/18 04:50 MPV 9.5 fl (9.4-12.3) 04/09/18 04:50 Neut % (Auto) 71.4 % (34.0-67.9) H 04/09/18 04:50 Lymph % (Auto) 10.5 % (21.8-53.1) L 04/09/18 04:50 Russell % (Auto) 13.6 % (5.3-12.2) H 04/09/18 04:50 Eos % (Auto) 4.3 (0.8-7.0) 04/09/18 04:50 Baso % (Auto) 0.2 % (0.1-1.2) 04/09/18 04:50 Neut # (Auto) 9.36 K/mm3 (1.78-5.38) H 04/09/18 04:50 Lymph # (Auto) 1.38 K/mm3 (1.32-3.57) 04/09/18 04:50 Russell # (Auto) 1.78 K/mm3 (0.30-0.82) H 04/09/18 04:50 Eos # (Auto) 0.57 K/mm3 (0.04-0.54) H 04/09/18 04:50 Baso # (Auto) 0.03 K/mm3 (0.01-0.08) 04/09/18 04:50 Neutrophils % (Manual) 68 % (40-60) H 04/04/18 06:42 Band Neutrophils % 1 % (0-10) 04/04/18 06:42 Lymphocytes % (Manual) 22 % (20-40) 04/04/18 06:42 Atypical Lymphs % 0 % 04/04/18 06:42 Monocytes % (Manual) 5 % (2-10) 04/04/18 06:42 Eosinophils % (Manual) 4 % (0.8-7.0) 04/04/18 06:42 Basophils % (Manual) 0 (0.2-1.2) L 04/04/18 06:42 Manual Slide Review Abnormal smear 04/09/18 04:50 Platelet Estimate Adequate 04/04/18 06:42 RBC Morph Comment Normal 04/04/18 06:42 PT 10.3 SECONDS (9.5-12.1) 04/04/18 06:42 INR 0.94 04/04/18 06:42 Sodium 134 mEq/L (136-145) L 04/09/18 04:50 Potassium 4.0 mEq/L (3.5-5.1) 04/09/18 04:50 Chloride 100 mEq/L (98-107) 04/09/18 04:50 Carbon Dioxide 27 mEq/L (21-32) 04/09/18 04:50 Anion Gap 11.0 (5-15) 04/09/18 04:50 BUN 12 mg/dL (7-18) 04/09/18 04:50 Creatinine 0.9 mg/dL (0.7-1.3) 04/09/18 04:50 Est Cr Clr Drug Dosing 100.38 mL/min 04/09/18 04:50 Estimated GFR (MDRD) > 60 mL/min (>60) 04/09/18 04:50 BUN/Creatinine Ratio 13.3 (14-18) L 04/09/18 04:50 Glucose 136 mg/dL (74-106) H 04/09/18 04:50 Calcium 8.7 mg/dL (8.5-10.1) 04/09/18 04:50 Magnesium 2.0 mg/dl (1.8-2.4) 04/09/18 04:50 Total Bilirubin 0.9 mg/dL (0.2-1.0) 04/09/18 04:50 GGT 257 U/L (15-85) H 04/04/18 06:42 AST 70 U/L (15-37) H 04/09/18 04:50 ALT 90 U/L (16-63) H 04/09/18 04:50 Alkaline Phosphatase 102 U/L (46-116) 04/09/18 04:50 Troponin I < 0.017 ng/mL (0.00-0.056) 04/04/18 06:42 C-Reactive Protein < 0.2 mg/dL (<1.0) 04/04/18 06:42 Total Protein 6.9 g/dl (6.4-8.2) 04/09/18 04:50 Albumin 2.7 g/dl (3.4-5.0) L 04/09/18 04:50 Globulin 4.2 gm/dL 04/09/18 04:50 Albumin/Globulin Ratio 0.6 (1-2) L 04/09/18 04:50 Lipase 299 U/L (73-393) 04/08/18 05:25 Urine Color Yellow (Yellow) 04/04/18 10:45 Urine Appearance Clear (Clear) 04/04/18 10:45 Urine pH 6.0 (5.0-8.0) 04/04/18 10:45 Ur Specific [place] 1.015 (1.005-1.030) 04/04/18 10:45 Urine Protein Negative (Negative) 04/04/18 10:45 Urine Glucose (UA) Negative (Negative) 04/04/18 10:45 Urine Ketones Negative (Negative) 04/04/18 10:45 Urine Occult Blood Negative (Negative) 04/04/18 10:45 Urine Nitrite Negative (Negative) 04/04/18 10:45 Urine Bilirubin Negative (Negative) 04/04/18 10:45 Urine Urobilinogen 0.2 (0.2-1.0) 04/04/18 10:45 Ur Leukocyte Esterase Negative (Negative) 04/04/18 10:45 Urine RBC Not seen /hpf (0-5) 04/04/18 10:45 Urine WBC 0-5 /hpf (0-5) 04/04/18 10:45 Ur Epithelial Cells 0-5 /hpf (0-5) 04/04/18 10:45 Urine Bacteria Few /hpf (FEW) 04/04/18 10:45 Urine Mucus Not seen /hpf (FEW) 04/04/18 10:45 - Allergies Allergies/Adverse Reactions: Allergies Allergy/AdvReac Type Severity Reaction Status Date / Time cat dander Allergy Swelling Verified 04/04/18 12:09 dog dander Allergy Swelling Verified 04/04/18 12:09 egg Allergy Swollen Verified 04/04/18 12:09 Tongue Penicillins Allergy Rash Verified 04/04/18 12:09 - Acknowledgements Anesthesia Type Planned: General Anesthesia Pt an Appropriate Candidate for the Planned Anesthesia: Yes Alternatives and Risks of Anesthesia Discussed w Pt/Guardian: Yes Pt/Guardian Understands and Agrees with Anesthesia Plan: Yes PreAnesthesia Questionnaire - Past Health History Medical/Surgical History: Denies Medical/Surgical History HEENT History: Reports: Other (See Below) Other HEENT History: wisdom teeth out. Respiratory History: Reports: Pneumonia, Recurrent Other Neuro History: headaches from allergies Oncologic (Cancer) History: Reports: Other (See Below) Other Oncologic History: had skin area "froze it" to L) forearm--unsure if was skin CA or not. Dermatologic History: Reports: Other (See Below) Other Dermatologic History: had area of skin removed from L) forearm--unsure of skin CA. - Infectious Disease History Infectious Disease History: Reports: Chicken Pox - Past Surgical History GI Surgical History: Reports: Hernia, Abdominal (prior umbilical hernia repair ( 4 years ago)) - SUBSTANCE USE Smoking Status *Q: Former Smoker Second Hand Smoke Exposure: No Number of Drinks Per Day: 4 Date of Last Drink: 04/03/18 Time of Last Drink: 18:00 Recreational Drug Use History: No Recreational Drug Type: Reports: Methamphetamine (Prior use, last use was in 1999.) - HOME MEDS Home Medications: Home Meds Fexofenadine [Siobhan] 180 mg PO DAILY 04/04/18 [History] - CURRENT (IN HOUSE) MEDS Current Meds: Current Medications Albuterol/Ipratropium (Duoneb 3.0-0.5 Mg/3 Ml) 3 ml NEB Q4H PRN PRN Reason: Shortness Of Breath/wheezing Bisacodyl (Dulcolax) 10 mg RECTAL DAILY PRN PRN Reason: Constipation Heparin Sodium (Porcine) (Heparin Sodium) 5,000 units SUBCUT Q8H [facility] Last Admin: 04/10/18 04:10 Dose: 5,000 units Hydromorphone HCl (Dilaudid) 1 mg IVPUSH Q2H PRN PRN Reason: Pain Last Admin: 04/08/18 13:37 Dose: 1 mg Ertapenem 1 gm/ Sodium (Chloride) 100 mls @ 200 mls/hr IV Q24H [facility] Last Admin: 04/09/18 18:25 Dose: 200 mls/hr Loratadine (Claritin) 10 mg PO DAILY [facility] Last Admin: 04/09/18 08:57 Dose: 10 mg Magnesium Oxide (Magnesium Oxide) 400 mg PO BID [facility] Last Admin: 04/09/18 20:05 Dose: 400 mg Ondansetron HCl (Zofran) 4 mg IVPUSH Q8H PRN PRN Reason: Nausea Last Admin: 04/04/18 16:43 Dose: 4 mg Oxycodone/Acetaminophen (Percocet 325-5 Mg) 2 tab PO Q4H PRN PRN Reason: Pain Last Admin: 04/10/18 05:28 Dose: 2 tab Pantoprazole Sodium (Protonix) 40 mg PO BEDTIME [facility] Last Admin: 04/09/18 20:05 Dose: 40 mg Sodium Chloride (Saline Flush) 10 ml FLUSH ASDIRECTED PRN PRN Reason: Keep Vein Open Last Admin: 04/08/18 08:48 Dose: 10 ml Discontinued Medications Bisacodyl (Dulcolax) 10 mg RECTAL ONETIME ONE Stop: 04/06/18 08:16 Last Admin: 04/06/18 08:36 Dose: 10 mg Bisacodyl (Dulcolax) 10 mg RECTAL ONETIME ONE Stop: 04/08/18 21:01 Last Admin: 04/08/18 20:31 Dose: Not Given Bisacodyl (Dulcolax) 10 mg RECTAL ONETIME ONE Stop: 04/09/18 06:39 Last Admin: 04/09/18 06:54 Dose: 10 mg Fentanyl (Sublimaze) Confirm Administered Dose 250 mcg .ROUTE .STK-MED ONE Stop: 04/10/18 07:32 Furosemide (Lasix) 20 mg PO ONETIME ONE Stop: 04/07/18 09:52 Last Admin: 04/07/18 10:11 Dose: 20 mg Furosemide (Lasix) 20 mg PO Q8H [facility] Last Admin: 04/09/18 08:57 Dose: 20 mg Furosemide (Lasix) 20 mg PO DAILY [facility] Hydromorphone HCl (Dilaudid) 0.5 mg IVPUSH ONETIME ONE Stop: 04/04/18 07:07 Last Admin: 04/04/18 07:14 Dose: 0.5 mg Hydromorphone HCl (Dilaudid) 1 mg IVPUSH ONETIME ONE Stop: 04/04/18 08:35 Last Admin: 04/04/18 08:39 Dose: 1 mg Hydromorphone HCl (Dilaudid) 1 mg IVPUSH ONETIME ONE Stop: 04/04/18 09:42 Last Admin: 04/04/18 09:47 Dose: 1 mg Hydromorphone HCl (Dilaudid) 1 mg IVPUSH ONETIME ONE Stop: 04/04/18 11:00 Last Admin: 04/04/18 11:05 Dose: 1 mg Sodium Chloride (Normal Saline) 1,000 mls @ 500 mls/hr IV ASDIRECTED [facility] Last Admin: 04/04/18 07:14 Dose: 500 mls/hr Sodium Chloride (Normal Saline) 1,000 mls @ 999 mls/hr IV ASDIRECTED [facility] Last Admin: 04/04/18 11:05 Dose: 999 mls/hr Sodium Chloride (Normal Saline) 1,000 mls @ 200 mls/hr IV ASDIRECTED [facility] Last Admin: 04/04/18 22:36 Dose: 200 mls/hr Acetaminophen (Ofirmev) 100 mls @ 400 mls/hr IV Q6H PRN PRN Reason: Pain Stop: 04/05/18 18:38 Last Admin: 04/04/18 19:57 Dose: 400 mls/hr Sodium Chloride (Normal Saline) 1,000 mls @ 40 mls/hr IV ASDIRECTED [facility] Last Admin: 04/07/18 00:45 Dose: 150 mls/hr Acetaminophen (Ofirmev) 100 mls @ 400 mls/hr IV Q6H PRN PRN Reason: Pain Stop: 04/06/18 02:01 Acetaminophen (Ofirmev) 100 mls @ 400 mls/hr IV NOW ONE Stop: 04/05/18 02:14 Acetaminophen (Ofirmev) 100 mls @ 400 mls/hr IV Q6H PRN PRN Reason: Pain Stop: 04/06/18 01:32 Pantoprazole Sodium 40 mg/ (Sodium Chloride) 100 mls @ 200 mls/hr IV DAILY [facility] Last Admin: 04/06/18 17:35 Dose: Not Given Lidocaine HCl (Xylocaine-Mpf 1%) Confirm Administered Dose 4 mls @ as directed .ROUTE .STK-MED ONE Stop: 04/10/18 07:31 Iopamidol (Isovue-300 (61%)) 125 ml IVPUSH ONETIME ONE Stop: 04/04/18 08:33 Last Admin: 04/04/18 09:16 Dose: 125 ml Magnesium Hydroxide (Milk Of Magnesia) 30 ml PO ONETIME ONE Stop: 04/08/18 13:24 Last Admin: 04/08/18 13:36 Dose: 30 ml Magnesium Hydroxide (Milk Of Magnesia) 60 ml PO ONETIME ONE Stop: 04/09/18 10:49 Last Admin: 04/09/18 10:53 Dose: 30 ml Midazolam HCl (Versed 1 Mg/Ml) Confirm Administered Dose 2 mg .ROUTE .STK-MED ONE Stop: 04/10/18 07:32 Morphine Sulfate (Morphine) 4 mg IVPUSH ONETIME ONE Stop: 04/04/18 06:51 Last Admin: 04/04/18 06:58 Dose: 4 mg Morphine Sulfate (Morphine Production Foreman 30 Mg In 30 Ml) 30 mg IV ASDIRECTED [facility]; Protocol Last Admin: 04/07/18 00:44 Dose: 30 mg Ondansetron HCl (Zofran) 4 mg IVPUSH ONETIME ONE Stop: 04/04/18 06:51 Last Admin: 04/04/18 06:58 Dose: 4 mg Ondansetron HCl (Zofran) Confirm Administered Dose 4 mg .ROUTE .STK-MED ONE Stop: 04/10/18 07:31 Pantoprazole Sodium (Protonix Iv) 40 mg IVPUSH DAILY [facility] Last Admin: 04/09/18 08:57 Dose: 40 mg Potassium Chloride (Klor-Con M20) 20 meq PO TID [facility] Last Admin: 04/09/18 08:57 Dose: 20 meq Potassium Chloride (Klor-Con M20) 40 meq PO ONETIME ONE Stop: 04/08/18 08:06 Last Admin: 04/08/18 08:47 Dose: 40 meq Propofol (Diprivan 20 Ml) Confirm Administered Dose 200 mg .ROUTE .STK-MED ONE Stop: 04/10/18 07:31 Rocuronium [place] (Zemuron) Confirm Administered Dose 50 mg .ROUTE .STK-MED ONE Stop: 04/10/18 07:31 Sodium Chloride (Saline Flush) 10 ml FLUSH ONETIME ONE Stop: 04/04/18 08:33 Last Admin: 04/04/18 09:16 Dose: 10 ml
[2018-04-10] MEDS ORDERED: Lactated Ringers 1,000 ML ONE (08:18)
[2018-04-10] MEDS ORDERED: Dexamethasone 4 MG/ML SDV ONE (08:18)
[2018-04-10] MEDS ORDERED: Lidocaine 1% with EPINEPHrine 1:100,000 20 ML MDV ONE (08:28)
[2018-04-10] MEDS ORDERED: Bupivacaine 0.5%/EPINEPHrine 1:200,000 50 ML MDV ONE (08:28)
[2018-04-10] MEDS ORDERED: Furosemide 20 MG Tab PO SCH (09:00)
[2018-04-10] MEDS ORDERED: HYDROmorphone 0.5 MG/0.5 ML Syringe ONE ×2 (09:44→10:06)
[2018-04-10] MEDS ORDERED: fentaNYL 100 MCG/2 ML SDV IVPUSH PRN ×2 (09:54→10:23)
[2018-04-10] MEDS ORDERED: HYDROmorphone 0.5 MG/0.5 ML Syringe IVPUSH PRN (09:54)
[2018-04-10] MEDS ORDERED: Meperidine PF 50 MG/ML Syringe IVPUSH PRN (09:54)
[2018-04-10] MEDS ORDERED: diphenhydrAMINE 50 MG/ML SDV IVPUSH PRN (09:54)
[2018-04-10] MEDS ORDERED: Haloperidol Lactate 5 MG/ML SDV IVPUSH ONE (09:54)
[2018-04-10] MEDS ORDERED: Neostigmine Methylsulfate 1 MG/ML 5 ML Syringe ONE (10:06)
[2018-04-10] MEDS ORDERED: Ketorolac 30 MG/ML SDV ONE (10:07)
[2018-04-10] MEDS ORDERED: Acetaminophen/oxyCODONE 325-5 MG Tab PO PRN (10:23)
[2018-04-10] MEDS ORDERED: Ondansetron 4 MG/2 ML SDV IVPUSH PRN (10:23)
--- NOTE | 2018-04-10 10:30 | PCM.OPNOTE ---
- General Post-Op/Procedure Note Date of Surgery/Procedure: 04/10/18 Operative Procedure(s): Laparoscopic cholecystectomy Findings: Acute cholecystitis with multiple gallstones Pre Op Diagnosis: Gallstone pancreatitis Post-Op Diagnosis: Same Anesthesia Technique: General ET Tube, Local Primary Surgeon: Garcia Mukherjee Pathology: Gallbladder and contents EBL in mLs: 10 Complications: None Condition: Good Free Text/Narrative:: Intake & Output 04/09/18 04/10/18 04/10/18 22:59 06:59 14:59 Intake Total 880 200 25 Output Total 1075 500 200 Balance -195 -300 -175 After adequate general endotracheal tube anesthesia was obtained the patient's abdomen was prepped and draped in the usual fashion for a laparoscopic cholecystectomy. After local analgesia was given a supraumbilical incision was made with a 15 blade down to the midline which was entered with Metzenbaums scissors. A 12 mm camera port was inserted followed by CO2 pneumoperitoneum. 3-- 5 mm working ports were placed along the right costal margin. Exploration revealed a distended gallbladder with acute edematous changes. I grasped the dome of the gallbladder and retracted it and the liver in a cephalad direction. I then dissected away the fat from around the cystic duct and cystic artery using hook cautery and the sucker dissection. 5 mm clips were placed proximally and distally on the cystic duct as well as the cystic artery which were divided with EndoShears. The gallbladder was taken down in a retrograde fashion with the hook cautery, placed in a bag and then removed through the umbilicus. I irrigated out the gallbladder bed which was hemostatic and bile static. There was no obvious bowel injury. The abdomen was decannulated under direct vision. I closed the umbilical incision site with a running 0 Vicryl suture. The subcutaneous tissues and skin were closed with Vicryl as well. Steri-Strips and gauze were used for the dressing. Quotation Checker photographs were taken for the patient and for the medical record. There were no procedural comp occasions.
--- NOTE | 2018-04-10 10:39 | PCM.POSTAN ---
POST ANESTHESIA ASSESSMENT - MENTAL STATUS Mental Status: Alert, Oriented - VITAL SIGNS Pulse Rate: 86 SaO2: 92 Resp Rate: 10 Blood Pressure: 136/77 Temperature: 37.1 C - RESPIRATORY Respiratory Status: Respiratory Rate WNL, Airway Patent, O2 Saturation Stable, Supplemental Oxygen - CARDIOVASCULAR CV Status: Pulse Rate WNL, Blood Pressure Stable - GASTROINTESTINAL GI Status: No Symptoms - PAIN Pain Score: 0 - POST OP HYDRATION Hydration Status: Adequate & Stable
[2018-04-10] MEDS: Loratadine 10 MG Tab PO SCH (12:37)
[2018-04-10] MEDS: Magnesium Oxide 400 MG Tab PO SCH ×2 (12:37→20:09)
[2018-04-10] MEDS: Sodium Chloride 0.9% 1,000 ML IV SCH (16:54)
[2018-04-10] MEDS: Ertapenem 1 GM in Sodium Chloride 0.9% 100 ML IV SCH (17:00)
[2018-04-10] MEDS: Pantoprazole 40 MG Tab.CR PO SCH (20:09)
[2018-04-10] MEDS ORDERED: Famotidine 20 MG Tab PO SCH (21:00)
[2018-04-11] MEDS: Sodium Chloride 0.9% 1,000 ML IV SCH (00:53)
[2018-04-11] MEDS: Acetaminophen/oxyCODONE 325-5 MG Tab PO PRN (00:54)
[2018-04-11] MEDS: Heparin Sodium 5,000 Units/ML Vial SUBCUT SCH (04:47)
--- NOTE | 2018-04-11 08:04 | PCM.SURGPN ---
- General Info Date of Service: 04/11/18 POD#: 1 Functional Status: Reports: Pain Controlled, Tolerating Diet, Ambulating, Urinating, Incentive Spirometry - Review of Systems Gastrointestinal: Reports: Abdominal Pain (Mild incisional) - Patient Data Vitals - Most Recent: Last Vital Signs Temp 37.1 C 04/11/18 04:47 Pulse 75 04/11/18 04:47 Resp 18 04/11/18 04:47 BP 131/93 H 04/11/18 04:47 Pulse Ox 94 L 04/11/18 04:47 Weight - Most Recent: 81.057 kg I&O - Last 24 Hours: Intake & Output 04/10/18 04/11/18 04/11/18 22:59 06:59 14:59 Intake Total 775 1450 Output Total 1575 100 Balance -800 1350 Med Orders - Current: Current Medications Albuterol/Ipratropium (Duoneb 3.0-0.5 Mg/3 Ml) 3 ml NEB Q4H PRN PRN Reason: Shortness Of Breath/wheezing Bisacodyl (Dulcolax) 10 mg RECTAL DAILY PRN PRN Reason: Constipation Diphenhydramine HCl (Benadryl) 25 mg IVPUSH Q6H PRN PRN Reason: Pruritis Famotidine (Pepcid) 20 mg PO BEDTIME [facility] Last Admin: 04/10/18 20:09 Dose: 20 mg Fentanyl (Sublimaze) 50 mcg IVPUSH Q5M PRN PRN Reason: Pain Fentanyl (Sublimaze) 25 mcg IVPUSH Q1H PRN PRN Reason: Pain (severe 7-10) Stop: 04/11/18 10:25 Heparin Sodium (Porcine) (Heparin Sodium) 5,000 units SUBCUT Q8H [facility] Last Admin: 04/11/18 04:47 Dose: 5,000 units Hydromorphone HCl (Dilaudid) 1 mg IVPUSH Q2H PRN PRN Reason: Pain Last Admin: 04/08/18 13:37 Dose: 1 mg Ertapenem 1 gm/ Sodium (Chloride) 100 mls @ 200 mls/hr IV Q24H [facility] Last Admin: 04/10/18 17:00 Dose: 200 mls/hr Sodium Chloride (Normal Saline) 1,000 mls @ 125 mls/hr IV ASDIRECTED [facility] Last Admin: 04/11/18 00:53 Dose: 125 mls/hr Loratadine (Claritin) 10 mg PO DAILY [facility] Last Admin: 04/10/18 12:37 Dose: 10 mg Magnesium Oxide (Magnesium Oxide) 400 mg PO BID [facility] Last Admin: 04/10/18 20:09 Dose: 400 mg Ondansetron HCl (Zofran) 4 mg IVPUSH Q8H PRN PRN Reason: Nausea Last Admin: 04/04/18 16:43 Dose: 4 mg Ondansetron HCl (Zofran) 4 mg IVPUSH Q6H PRN PRN Reason: Nausea/Vomiting Oxycodone/Acetaminophen (Percocet 325-5 Mg) 2 tab PO Q4H PRN PRN Reason: Pain Last Admin: 04/11/18 00:54 Dose: 2 tab Oxycodone/Acetaminophen (Percocet 325-5 Mg) 1 tab PO Q4H PRN PRN Reason: Pain (moderate 4-6) Pantoprazole Sodium (Protonix) 40 mg PO BEDTIME [facility] Last Admin: 04/10/18 20:09 Dose: 40 mg Sodium Chloride (Saline Flush) 10 ml FLUSH ASDIRECTED PRN PRN Reason: Keep Vein Open Last Admin: 04/08/18 08:48 Dose: 10 ml Discontinued Medications Bisacodyl (Dulcolax) 10 mg RECTAL ONETIME ONE Stop: 04/06/18 08:16 Last Admin: 04/06/18 08:36 Dose: 10 mg Bisacodyl (Dulcolax) 10 mg RECTAL ONETIME ONE Stop: 04/08/18 21:01 Last Admin: 04/08/18 20:31 Dose: Not Given Bisacodyl (Dulcolax) 10 mg RECTAL ONETIME ONE Stop: 04/09/18 06:39 Last Admin: 04/09/18 06:54 Dose: 10 mg Bupivacaine HCl/Epinephrine Bitart (Marcaine 0.5%/Epinephrine 1:200,000) Confirm Administered Dose 50 ml .ROUTE .STK-MED ONE Stop: 04/10/18 08:29 Last Admin: 04/10/18 09:51 Dose: 8 ml Dexamethasone (Dexamethasone) Confirm Administered Dose 4 mg .ROUTE .STK-MED ONE Stop: 04/10/18 08:19 Fentanyl (Sublimaze) Confirm Administered Dose 250 mcg .ROUTE .STK-MED ONE Stop: 04/10/18 07:32 Furosemide (Lasix) 20 mg PO ONETIME ONE Stop: 04/07/18 09:52 Last Admin: 04/07/18 10:11 Dose: 20 mg Furosemide (Lasix) 20 mg PO Q8H [facility] Last Admin: 04/09/18 08:57 Dose: 20 mg Furosemide (Lasix) 20 mg PO DAILY [facility] Glycopyrrolate () Confirm Administered Dose 1 mg .ROUTE .STK-MED ONE Stop: 04/10/18 10:07 Haloperidol Lactate (Haldol) 1 mg IVPUSH ONETIME ONE Stop: 04/10/18 09:55 Last Admin: 04/10/18 16:42 Dose: Not Given Hydromorphone HCl (Dilaudid) 0.5 mg IVPUSH ONETIME ONE Stop: 04/04/18 07:07 Last Admin: 04/04/18 07:14 Dose: 0.5 mg Hydromorphone HCl (Dilaudid) 1 mg IVPUSH ONETIME ONE Stop: 04/04/18 08:35 Last Admin: 04/04/18 08:39 Dose: 1 mg Hydromorphone HCl (Dilaudid) 1 mg IVPUSH ONETIME ONE Stop: 04/04/18 09:42 Last Admin: 04/04/18 09:47 Dose: 1 mg Hydromorphone HCl (Dilaudid) 1 mg IVPUSH ONETIME ONE Stop: 04/04/18 11:00 Last Admin: 04/04/18 11:05 Dose: 1 mg Hydromorphone HCl (Dilaudid) Confirm Administered Dose 0.5 mg .ROUTE .STK-MED ONE Stop: 04/10/18 09:45 Hydromorphone HCl (Dilaudid) 0.5 mg IVPUSH ASDIRECTED PRN PRN Reason: Severe Pain Stop: 04/10/18 12:00 Hydromorphone HCl (Dilaudid) Confirm Administered Dose 0.5 mg .ROUTE .STK-MED ONE Stop: 04/10/18 10:07 Sodium Chloride (Normal Saline) 1,000 mls @ 500 mls/hr IV ASDIRECTED [facility] Last Admin: 04/04/18 07:14 Dose: 500 mls/hr Sodium Chloride (Normal Saline) 1,000 mls @ 999 mls/hr IV ASDIRECTED [facility] Last Admin: 04/04/18 11:05 Dose: 999 mls/hr Sodium Chloride (Normal Saline) 1,000 mls @ 200 mls/hr IV ASDIRECTED [facility] Last Admin: 04/04/18 22:36 Dose: 200 mls/hr Acetaminophen (Ofirmev) 100 mls @ 400 mls/hr IV Q6H PRN PRN Reason: Pain Stop: 04/05/18 18:38 Last Admin: 04/04/18 19:57 Dose: 400 mls/hr Sodium Chloride (Normal Saline) 1,000 mls @ 40 mls/hr IV ASDIRECTED [facility] Last Admin: 04/07/18 00:45 Dose: 150 mls/hr Acetaminophen (Ofirmev) 100 mls @ 400 mls/hr IV Q6H PRN PRN Reason: Pain Stop: 04/06/18 02:01 Acetaminophen (Ofirmev) 100 mls @ 400 mls/hr IV NOW ONE Stop: 04/05/18 02:14 Acetaminophen (Ofirmev) 100 mls @ 400 mls/hr IV Q6H PRN PRN Reason: Pain Stop: 04/06/18 01:32 Pantoprazole Sodium 40 mg/ (Sodium Chloride) 100 mls @ 200 mls/hr IV DAILY [facility] Last Admin: 04/06/18 17:35 Dose: Not Given Lidocaine HCl (Xylocaine-Mpf 1%) Confirm Administered Dose 4 mls @ as directed .ROUTE .STK-MED ONE Stop: 04/10/18 07:31 Lactated Ringer's (Ringers, Lactated) Confirm Administered Dose 1,000 mls @ as directed .ROUTE .STK-MED ONE Stop: 04/10/18 08:19 Iopamidol (Isovue-300 (61%)) 125 ml IVPUSH ONETIME ONE Stop: 04/04/18 08:33 Last Admin: 04/04/18 09:16 Dose: 125 ml Ketorolac Tromethamine (Toradol) Confirm Administered Dose 30 mg .ROUTE .STK- MED ONE Stop: 04/10/18 10:08 Lidocaine/Epinephrine (Xylocaine 1% With Epinephrine 1:100,000) Confirm Administered Dose 20 ml .ROUTE .STK-MED ONE Stop: 04/10/18 08:29 Last Admin: 04/10/18 09:51 Dose: 8 ml Magnesium Hydroxide (Milk Of Magnesia) 30 ml PO ONETIME ONE Stop: 04/08/18 13:24 Last Admin: 04/08/18 13:36 Dose: 30 ml Magnesium Hydroxide (Milk Of Magnesia) 60 ml PO ONETIME ONE Stop: 04/09/18 10:49 Last Admin: 04/09/18 10:53 Dose: 30 ml Meperidine HCl (Demerol) 12.5 mg IVPUSH ONETIME PRN PRN Reason: Shivering Stop: 04/10/18 12:00 Midazolam HCl (Versed 1 Mg/Ml) Confirm Administered Dose 2 mg .ROUTE .STK-MED ONE Stop: 04/10/18 07:32 Morphine Sulfate (Morphine) 4 mg IVPUSH ONETIME ONE Stop: 04/04/18 06:51 Last Admin: 04/04/18 06:58 Dose: 4 mg Morphine Sulfate (Morphine [employer] Manager 30 Mg In 30 Ml) 30 mg IV ASDIRECTED [facility]; Protocol Last Admin: 04/07/18 00:44 Dose: 30 mg Neostigmine Methylsulfate (Neostigmine) Confirm Administered Dose 5 mg .ROUTE .STK-MED ONE Stop: 04/10/18 10:07 Ondansetron HCl (Zofran) 4 mg IVPUSH ONETIME ONE Stop: 04/04/18 06:51 Last Admin: 04/04/18 06:58 Dose: 4 mg Ondansetron HCl (Zofran) Confirm Administered Dose 4 mg .ROUTE .STK-MED ONE Stop: 04/10/18 07:31 Pantoprazole Sodium (Protonix Iv) 40 mg IVPUSH DAILY [facility] Last Admin: 04/09/18 08:57 Dose: 40 mg Potassium Chloride (Klor-Con M20) 20 meq PO TID [facility] Last Admin: 04/09/18 08:57 Dose: 20 meq Potassium Chloride (Klor-Con M20) 40 meq PO ONETIME ONE Stop: 04/08/18 08:06 Last Admin: 04/08/18 08:47 Dose: 40 meq Propofol (Diprivan 20 Ml) Confirm Administered Dose 200 mg .ROUTE .STK-MED ONE Stop: 04/10/18 07:31 Propofol (Diprivan 20 Ml) Confirm Administered Dose 200 mg .ROUTE .STK-MED ONE Stop: 04/10/18 09:46 Rocuronium [place] (Zemuron) Confirm Administered Dose 50 mg .ROUTE .STK-MED ONE Stop: 04/10/18 07:31 Sodium Chloride (Saline Flush) 10 ml FLUSH ONETIME ONE Stop: 04/04/18 08:33 Last Admin: 04/04/18 09:16 Dose: 10 ml - Exam Wound/Incisions: Dressing Dry and Intact - Problem List & Annotations (1) Acute gallstone pancreatitis SNOMED Code(s): 027125251 Code(s): K85.10 - BILIARY ACUTE PANCREATITIS WITHOUT NECROSIS OR INFECTION Status: Resolved Current Visit: Yes (2) Cholelithiasis SNOMED Code(s): 373030167 Code(s): K80.20 - CALCULUS OF GALLBLADDER W/O CHOLECYSTITIS W/O OBSTRUCTION Status: Resolved Current Visit: Yes Qualifiers: Cholelithiasis location: gallbladder and bile duct Cholecystitis acuity: acute Biliary obstruction: without biliary obstruction - Problem List Review Problem List Initiated/Reviewed/Updated: Yes - My Orders Last 24 Hours: Active Orders 24 hr Category Date Time Status Patient Status [ADT] Routine ADT 04/10/18 10:23 Active Notify Provider [RC] ASDIRECTED Care 04/10/18 09:54 Active Ready for Discharge [RC] PER UNIT ROUTINE Care 04/11/18 08:02 Ordered Up ad Eveline [RC] ASDIRECTED Care 04/10/18 10:23 Active Up to Chair [RC] BID Care 04/10/18 10:24 Active Low Fat Diet [DIET] Diet 04/10/18 Dinner Active Acetaminophen/oxyCODONE [Percocet 325-5 MG] Med 04/10/18 10:23 Active 1 tab PO Q4H PRN Famotidine [Pepcid] Med 04/10/18 21:00 Active 20 mg PO BEDTIME Ondansetron [Zofran] Med 04/10/18 10:23 Active 4 mg IVPUSH Q6H PRN Sodium Chloride 0.9% [Normal Saline] 1,000 ml Med 04/10/18 10:30 Active IV ASDIRECTED diphenhydrAMINE [Benadryl] Med 04/10/18 09:54 Active 25 mg IVPUSH Q6H PRN fentaNYL [Sublimaze] Med 04/10/18 10:23 Active 25 mcg IVPUSH Q1H PRN fentaNYL [Sublimaze] Med 04/10/18 09:54 Active 50 mcg IVPUSH Q5M PRN Medication Orders Albuterol/Ipratropium (Duoneb 3.0-0.5 Mg/3 Ml) 3 ml NEB Q4H PRN PRN Reason: Shortness Of Breath/wheezing Bisacodyl (Dulcolax) 10 mg RECTAL DAILY PRN PRN Reason: Constipation Diphenhydramine HCl (Benadryl) 25 mg IVPUSH Q6H PRN PRN Reason: Pruritis Famotidine (Pepcid) 20 mg PO BEDTIME [facility] Last Admin: 04/10/18 20:09 Dose: 20 mg Fentanyl (Sublimaze) 50 mcg IVPUSH Q5M PRN PRN Reason: Pain Fentanyl (Sublimaze) 25 mcg IVPUSH Q1H PRN PRN Reason: Pain (severe 7-10) Stop: 04/11/18 10:25 Heparin Sodium (Porcine) (Heparin Sodium) 5,000 units SUBCUT Q8H [facility] Last Admin: 04/11/18 04:47 Dose: 5,000 units Admin: 04/10/18 18:23 Dose: 5,000 units Admin: 04/10/18 12:37 Dose: 5,000 units Admin: 04/10/18 04:10 Dose: 5,000 units Admin: 04/09/18 18:24 Dose: 5,000 units Admin: 04/09/18 10:49 Dose: 5,000 units Admin: 04/09/18 03:33 Dose: 5,000 units Admin: 04/08/18 18:48 Dose: 5,000 units Admin: 04/08/18 11:09 Dose: 5,000 units Admin: 04/08/18 03:07 Dose: 5,000 units Admin: 04/07/18 18:24 Dose: 5,000 units Admin: 04/07/18 10:15 Dose: 5,000 units Admin: 04/07/18 03:59 Dose: 5,000 units Admin: 04/06/18 18:26 Dose: 5,000 units Admin: 04/06/18 11:42 Dose: 5,000 units Admin: 04/06/18 03:38 Dose: 5,000 units Admin: 04/05/18 19:07 Dose: 5,000 units Admin: 04/05/18 11:32 Dose: 5,000 units Admin: 04/05/18 03:41 Dose: 5,000 units Admin: 04/04/18 18:22 Dose: 5,000 units Admin: 04/04/18 12:21 Dose: 5,000 units Hydromorphone HCl (Dilaudid) 1 mg IVPUSH Q2H PRN PRN Reason: Pain Last Admin: 04/08/18 13:37 Dose: 1 mg Admin: 04/08/18 11:09 Dose: 1 mg Admin: 04/08/18 06:56 Dose: 1 mg Admin: 04/08/18 03:07 Dose: 1 mg Admin: 04/07/18 22:32 Dose: 1 mg Admin: 04/07/18 19:55 Dose: 1 mg Admin: 04/07/18 16:59 Dose: 1 mg Admin: 04/07/18 12:41 Dose: 1 mg Admin: 04/04/18 17:14 Dose: 1 mg Admin: 04/04/18 15:21 Dose: 1 mg Admin: 04/04/18 12:31 Dose: 1 mg Ertapenem 1 gm/ Sodium (Chloride) 100 mls @ 200 mls/hr IV Q24H [facility] Last Admin: 04/10/18 17:00 Dose: 200 mls/hr Infusion: 04/09/18 18:55 Dose: 200 mls/hr Admin: 04/09/18 18:25 Dose: 200 mls/hr Sodium Chloride (Normal Saline) 1,000 mls @ 125 mls/hr IV ASDIRECTED [facility] Last Admin: 04/11/18 00:53 Dose: 125 mls/hr Infusion: 04/11/18 00:53 Dose: 125 mls/hr Admin: 04/10/18 16:54 Dose: 125 mls/hr Loratadine (Claritin) 10 mg PO DAILY [facility] Last Admin: 04/10/18 12:37 Dose: 10 mg Admin: 04/09/18 08:57 Dose: 10 mg Admin: 04/08/18 08:48 Dose: 10 mg Admin: 04/07/18 09:01 Dose: 10 mg Magnesium Oxide (Magnesium Oxide) 400 mg PO BID [facility] Last Admin: 04/10/18 20:09 Dose: 400 mg Admin: 04/10/18 12:37 Dose: 400 mg Admin: 04/09/18 20:05 Dose: 400 mg Admin: 04/09/18 08:57 Dose: 400 mg Admin: 04/08/18 20:32 Dose: 400 mg Admin: 04/08/18 08:48 Dose: 400 mg Admin: 04/07/18 22:36 Dose: 400 mg Admin: 04/07/18 09:01 Dose: 400 mg Admin: 04/06/18 20:59 Dose: 400 mg Admin: 04/06/18 17:09 Dose: 400 mg Ondansetron HCl (Zofran) 4 mg IVPUSH Q8H PRN PRN Reason: Nausea Last Admin: 04/04/18 16:43 Dose: 4 mg Ondansetron HCl (Zofran) 4 mg IVPUSH Q6H PRN PRN Reason: Nausea/Vomiting Oxycodone/Acetaminophen (Percocet 325-5 Mg) 2 tab PO Q4H PRN PRN Reason: Pain Last Admin: 04/11/18 00:54 Dose: 2 tab Admin: 04/10/18 20:10 Dose: 2 tab Admin: 04/10/18 05:28 Dose: 2 tab Admin: 04/09/18 16:41 Dose: 2 tab Admin: 04/09/18 06:35 Dose: 2 tab Admin: 04/08/18 20:33 Dose: 2 tab Admin: 04/08/18 16:14 Dose: 2 tab Oxycodone/Acetaminophen (Percocet 325-5 Mg) 1 tab PO Q4H PRN PRN Reason: Pain (moderate 4-6) Pantoprazole Sodium (Protonix) 40 mg PO BEDTIME [facility] Last Admin: 04/10/18 20:09 Dose: 40 mg Admin: 04/09/18 20:05 Dose: 40 mg Sodium Chloride (Saline Flush) 10 ml FLUSH ASDIRECTED PRN PRN Reason: Keep Vein Open Last Admin: 04/08/18 08:48 Dose: 10 ml - Assessment Assessment (Free Text/Narrative):: Ready for discharge. - Plan Plan (Free Text/Narrative):: Discharge today.
--- NOTE | 2018-04-11 08:06 | PCM.DCSUM1 ---
Discharge Summary - Hospital Course Diagnosis: Stroke: No - Discharge Data Discharge Date: 04/11/18 Discharge Disposition: Home, Self-Care 01 Condition: Good - Discharge Diagnosis/Problem(s) (1) Acute gallstone pancreatitis SNOMED Code(s): 717413685 ICD Code: K85.10 - BILIARY ACUTE PANCREATITIS WITHOUT NECROSIS OR INFECTION Status: Resolved Current Visit: Yes (2) Cholelithiasis SNOMED Code(s): 237729831 ICD Code: K80.20 - CALCULUS OF GALLBLADDER W/O CHOLECYSTITIS W/O OBSTRUCTION Status: Resolved Current Visit: Yes Qualifiers: Cholelithiasis location: gallbladder and bile duct Cholecystitis acuity: acute Biliary obstruction: without biliary obstruction - Patient Summary/Data Operative Procedure(s) Performed: Laparoscopic cholecystectomy Complications: None Consults: Consultations 04/04/18 14:00 Consult to Case Management [CONS] Routine Consult to Soccer Coach [CONS] Routine Consult to Lens Matcher [CONS] Routine Consult to Spiritual Care [CONS] Routine OT Evaluation and Treatment [CONS] Routine PT Evaluation and Treatment [CONS] Routine Labs Pending at D/C: None Recommended Follow-up Testing/Procedures: 1 week in my office. Planned Operative Procedure(s) after DC: None Hospital Course: The patient's pancreatitis resolved and improved daily. He had fluid overload which was diuresed. His enzymes fell. Once his electrolytes and fluid status were normalized he was taken to surgery and underwent an uncomplicated laparoscopic cholecystectomy. He was ready to go home the next day after surgery. - Patient Instructions Diet, Other: Low-fat diet for 6 weeks Activity: As Tolerated Driving: May Drive Today Showering/Bathing: May Shower in 3 Days (Remove outer dressing before shower. Leave the Steri-Strips in place. They can get wet from the shower.) Wound/Incision Care: Keep Operative Site/Wound Site Clean and Dry Notify Provider of: Fever, Increased Pain, Nausea and/or Vomiting - Discharge Plan Home Medications: Home Meds Fexofenadine [Siobhan] 180 mg PO DAILY 04/04/18 [History] Referrals: PCP,None [Ordering Only Provider] - Garcia Mukherjee MD [Physician] - 04/18/18 (Routine postoperative visit) - Discharge Summary/Plan Comment DC Time >30 min.: No Discharge Summary/Plan Comment: Routine postoperative instructions were provided to the patient. I asked him to call me between now and the clinic visit if there were any questions or problems or concerns. - Patient Data Vitals - Most Recent: Last Vital Signs Temp 37.1 C 04/11/18 04:47 Pulse 75 04/11/18 04:47 Resp 18 04/11/18 04:47 BP 131/93 H 04/11/18 04:47 Pulse Ox 94 L 04/11/18 04:47 Weight - Most Recent: 81.057 kg I&O - Last 24 hours: Intake & Output 04/10/18 04/11/18 04/11/18 22:59 06:59 14:59 Intake Total 775 1450 Output Total 1575 100 Balance -800 1350 Med Orders - Current: Current Medications Albuterol/Ipratropium (Duoneb 3.0-0.5 Mg/3 Ml) 3 ml NEB Q4H PRN PRN Reason: Shortness Of Breath/wheezing Bisacodyl (Dulcolax) 10 mg RECTAL DAILY PRN PRN Reason: Constipation Diphenhydramine HCl (Benadryl) 25 mg IVPUSH Q6H PRN PRN Reason: Pruritis Famotidine (Pepcid) 20 mg PO BEDTIME [facility] Last Admin: 04/10/18 20:09 Dose: 20 mg Fentanyl (Sublimaze) 50 mcg IVPUSH Q5M PRN PRN Reason: Pain Fentanyl (Sublimaze) 25 mcg IVPUSH Q1H PRN PRN Reason: Pain (severe 7-10) Stop: 04/11/18 10:25 Heparin Sodium (Porcine) (Heparin Sodium) 5,000 units SUBCUT Q8H [facility] Last Admin: 04/11/18 04:47 Dose: 5,000 units Hydromorphone HCl (Dilaudid) 1 mg IVPUSH Q2H PRN PRN Reason: Pain Last Admin: 04/08/18 13:37 Dose: 1 mg Ertapenem 1 gm/ Sodium (Chloride) 100 mls @ 200 mls/hr IV Q24H [facility] Last Admin: 04/10/18 17:00 Dose: 200 mls/hr Sodium Chloride (Normal Saline) 1,000 mls @ 125 mls/hr IV ASDIRECTED [facility] Last Admin: 04/11/18 00:53 Dose: 125 mls/hr Loratadine (Claritin) 10 mg PO DAILY [facility] Last Admin: 04/10/18 12:37 Dose: 10 mg Magnesium Oxide (Magnesium Oxide) 400 mg PO BID [facility] Last Admin: 04/10/18 20:09 Dose: 400 mg Ondansetron HCl (Zofran) 4 mg IVPUSH Q8H PRN PRN Reason: Nausea Last Admin: 04/04/18 16:43 Dose: 4 mg Ondansetron HCl (Zofran) 4 mg IVPUSH Q6H PRN PRN Reason: Nausea/Vomiting Oxycodone/Acetaminophen (Percocet 325-5 Mg) 2 tab PO Q4H PRN PRN Reason: Pain Last Admin: 04/11/18 00:54 Dose: 2 tab Oxycodone/Acetaminophen (Percocet 325-5 Mg) 1 tab PO Q4H PRN PRN Reason: Pain (moderate 4-6) Pantoprazole Sodium (Protonix) 40 mg PO BEDTIME [facility] Last Admin: 04/10/18 20:09 Dose: 40 mg Sodium Chloride (Saline Flush) 10 ml FLUSH ASDIRECTED PRN PRN Reason: Keep Vein Open Last Admin: 04/08/18 08:48 Dose: 10 ml Discontinued Medications Bisacodyl (Dulcolax) 10 mg RECTAL ONETIME ONE Stop: 04/06/18 08:16 Last Admin: 04/06/18 08:36 Dose: 10 mg Bisacodyl (Dulcolax) 10 mg RECTAL ONETIME ONE Stop: 04/08/18 21:01 Last Admin: 04/08/18 20:31 Dose: Not Given Bisacodyl (Dulcolax) 10 mg RECTAL ONETIME ONE Stop: 04/09/18 06:39 Last Admin: 04/09/18 06:54 Dose: 10 mg Bupivacaine HCl/Epinephrine Bitart (Marcaine 0.5%/Epinephrine 1:200,000) Confirm Administered Dose 50 ml .ROUTE .STK-MED ONE Stop: 04/10/18 08:29 Last Admin: 04/10/18 09:51 Dose: 8 ml Dexamethasone (Dexamethasone) Confirm Administered Dose 4 mg .ROUTE .STK-MED ONE Stop: 04/10/18 08:19 Fentanyl (Sublimaze) Confirm Administered Dose 250 mcg .ROUTE .STK-MED ONE Stop: 04/10/18 07:32 Furosemide (Lasix) 20 mg PO ONETIME ONE Stop: 04/07/18 09:52 Last Admin: 04/07/18 10:11 Dose: 20 mg Furosemide (Lasix) 20 mg PO Q8H [facility] Last Admin: 04/09/18 08:57 Dose: 20 mg Furosemide (Lasix) 20 mg PO DAILY [facility] Glycopyrrolate () Confirm Administered Dose 1 mg .ROUTE .STK-MED ONE Stop: 04/10/18 10:07 Haloperidol Lactate (Haldol) 1 mg IVPUSH ONETIME ONE Stop: 04/10/18 09:55 Last Admin: 04/10/18 16:42 Dose: Not Given Hydromorphone HCl (Dilaudid) 0.5 mg IVPUSH ONETIME ONE Stop: 04/04/18 07:07 Last Admin: 04/04/18 07:14 Dose: 0.5 mg Hydromorphone HCl (Dilaudid) 1 mg IVPUSH ONETIME ONE Stop: 04/04/18 08:35 Last Admin: 04/04/18 08:39 Dose: 1 mg Hydromorphone HCl (Dilaudid) 1 mg IVPUSH ONETIME ONE Stop: 04/04/18 09:42 Last Admin: 04/04/18 09:47 Dose: 1 mg Hydromorphone HCl (Dilaudid) 1 mg IVPUSH ONETIME ONE Stop: 04/04/18 11:00 Last Admin: 04/04/18 11:05 Dose: 1 mg Hydromorphone HCl (Dilaudid) Confirm Administered Dose 0.5 mg .ROUTE .STK-MED ONE Stop: 04/10/18 09:45 Hydromorphone HCl (Dilaudid) 0.5 mg IVPUSH ASDIRECTED PRN PRN Reason: Severe Pain Stop: 04/10/18 12:00 Hydromorphone HCl (Dilaudid) Confirm Administered Dose 0.5 mg .ROUTE .STK-MED ONE Stop: 04/10/18 10:07 Sodium Chloride (Normal Saline) 1,000 mls @ 500 mls/hr IV ASDIRECTED [facility] Last Admin: 04/04/18 07:14 Dose: 500 mls/hr Sodium Chloride (Normal Saline) 1,000 mls @ 999 mls/hr IV ASDIRECTED [facility] Last Admin: 04/04/18 11:05 Dose: 999 mls/hr Sodium Chloride (Normal Saline) 1,000 mls @ 200 mls/hr IV ASDIRECTED [facility] Last Admin: 04/04/18 22:36 Dose: 200 mls/hr Acetaminophen (Ofirmev) 100 mls @ 400 mls/hr IV Q6H PRN PRN Reason: Pain Stop: 04/05/18 18:38 Last Admin: 04/04/18 19:57 Dose: 400 mls/hr Sodium Chloride (Normal Saline) 1,000 mls @ 40 mls/hr IV ASDIRECTED [facility] Last Admin: 04/07/18 00:45 Dose: 150 mls/hr Acetaminophen (Ofirmev) 100 mls @ 400 mls/hr IV Q6H PRN PRN Reason: Pain Stop: 04/06/18 02:01 Acetaminophen (Ofirmev) 100 mls @ 400 mls/hr IV NOW ONE Stop: 04/05/18 02:14 Acetaminophen (Ofirmev) 100 mls @ 400 mls/hr IV Q6H PRN PRN Reason: Pain Stop: 04/06/18 01:32 Pantoprazole Sodium 40 mg/ (Sodium Chloride) 100 mls @ 200 mls/hr IV DAILY [facility] Last Admin: 04/06/18 17:35 Dose: Not Given Lidocaine HCl (Xylocaine-Mpf 1%) Confirm Administered Dose 4 mls @ as directed .ROUTE .STK-MED ONE Stop: 04/10/18 07:31 Lactated Ringer's (Ringers, Lactated) Confirm Administered Dose 1,000 mls @ as directed .ROUTE .STK-MED ONE Stop: 04/10/18 08:19 Iopamidol (Isovue-300 (61%)) 125 ml IVPUSH ONETIME ONE Stop: 04/04/18 08:33 Last Admin: 04/04/18 09:16 Dose: 125 ml Ketorolac Tromethamine (Toradol) Confirm Administered Dose 30 mg .ROUTE .STK- MED ONE Stop: 04/10/18 10:08 Lidocaine/Epinephrine (Xylocaine 1% With Epinephrine 1:100,000) Confirm Administered Dose 20 ml .ROUTE .STK-MED ONE Stop: 04/10/18 08:29 Last Admin: 04/10/18 09:51 Dose: 8 ml Magnesium Hydroxide (Milk Of Magnesia) 30 ml PO ONETIME ONE Stop: 04/08/18 13:24 Last Admin: 04/08/18 13:36 Dose: 30 ml Magnesium Hydroxide (Milk Of Magnesia) 60 ml PO ONETIME ONE Stop: 04/09/18 10:49 Last Admin: 04/09/18 10:53 Dose: 30 ml Meperidine HCl (Demerol) 12.5 mg IVPUSH ONETIME PRN PRN Reason: Shivering Stop: 04/10/18 12:00 Midazolam HCl (Versed 1 Mg/Ml) Confirm Administered Dose 2 mg .ROUTE .STK-MED ONE Stop: 04/10/18 07:32 Morphine Sulfate (Morphine) 4 mg IVPUSH ONETIME ONE Stop: 04/04/18 06:51 Last Admin: 04/04/18 06:58 Dose: 4 mg Morphine Sulfate (Morphine Wardrobe Image Consultant 30 Mg In 30 Ml) 30 mg IV ASDIRECTED [facility]; Protocol Last Admin: 04/07/18 00:44 Dose: 30 mg Neostigmine Methylsulfate (Neostigmine) Confirm Administered Dose 5 mg .ROUTE .STK-MED ONE Stop: 04/10/18 10:07 Ondansetron HCl (Zofran) 4 mg IVPUSH ONETIME ONE Stop: 04/04/18 06:51 Last Admin: 04/04/18 06:58 Dose: 4 mg Ondansetron HCl (Zofran) Confirm Administered Dose 4 mg .ROUTE .STK-MED ONE Stop: 04/10/18 07:31 Pantoprazole Sodium (Protonix Iv) 40 mg IVPUSH DAILY [facility] Last Admin: 04/09/18 08:57 Dose: 40 mg Potassium Chloride (Klor-Con M20) 20 meq PO TID [facility] Last Admin: 04/09/18 08:57 Dose: 20 meq Potassium Chloride (Klor-Con M20) 40 meq PO ONETIME ONE Stop: 04/08/18 08:06 Last Admin: 04/08/18 08:47 Dose: 40 meq Propofol (Diprivan 20 Ml) Confirm Administered Dose 200 mg .ROUTE .STK-MED ONE Stop: 04/10/18 07:31 Propofol (Diprivan 20 Ml) Confirm Administered Dose 200 mg .ROUTE .STK-MED ONE Stop: 04/10/18 09:46 Rocuronium [place] (Zemuron) Confirm Administered Dose 50 mg .ROUTE .STK-MED ONE Stop: 04/10/18 07:31 Sodium Chloride (Saline Flush) 10 ml FLUSH ONETIME ONE Stop: 04/04/18 08:33 Last Admin: 04/04/18 09:16 Dose: 10 ml
[2018-04-11 08:42] VITALS: BP 128/79
--- NOTE | 2018-04-11 09:34 | PCM48HPAN ---
Post Anesthesia Note - EVALUATION WITHIN 48HRS OF ANESTHETIC Vital Signs in Normal Range: Yes Patient Participated in Evaluation: Yes Respiratory Function Stable: Yes Airway Patent: Yes Cardiovascular Function Stable: Yes Hydration Status Stable: Yes Pain Control Satisfactory: Yes Nausea and Vomiting Control Satisfactory: Yes Mental Status Recovered: Yes
== END 2018-04-11 09:39 | disposition home or self-care (01) | DRG 263 ==
LOC: JD.ED 06:32 → JD.MS 11:11
PROVIDERS: ADMIT Student in an Organized Health Care Education/Training Program; ATTEND Student in an Organized Health Care Education/Training Program
PROC: 0FT44ZZ Resection of Gallbladder, Percutaneous Endoscopic Approach (ICD-10-PCS; principal; 2018-04-10)
DX: K85.10 Biliary acute pancreatitis without necrosis or infection (principal); K80.00 Calculus of gallbladder with acute cholecystitis without obstruction; K56.7 Ileus, unspecified; E83.42 Hypomagnesemia; E87.6 Hypokalemia; Z88.0 Allergy status to penicillin; Z98.890 Other specified postprocedural states; Z87.01 Personal history of pneumonia (recurrent)
CPT/HCPCS: 36415; 71045; 71045-26; 74018; 74018-26; 74177; 74177-26; 80053; 81001; 82977; 83690; 83735; 84484; 85007; 85025; 85027; 85610; 86140; 93005; 93010; 94762; 96361; 96374; 96375; 96376; 97161-GP; 97165-GO; 97530-GO; 99285-25; A9270-GY; C9113; J1100; J1170; J1335; J1644; J1885; J2001; J2250; J2270; J2274; J2405; J2704; J2710; J3010; J7030; J7040; J7050; J7120; Q9967

== ENCOUNTER 2018-05-29 14:39 | Emergency (ER) | payer BC ==
[2018-05-29 14:52] VITALS: BP 113/80
--- NOTE | 2018-05-29 16:10 | EDM.PDOC ---
ED HPI GENERAL MEDICAL PROBLEM - General Chief Complaint: Abdominal Pain Stated Complaint: CONSTIPATION-POST SURGICAL ISSUES Time Seen by Provider: 05/29/18 14:49 Source of Information: Reports: Patient, RN Notes Reviewed - History of Present Illness INITIAL COMMENTS - FREE TEXT/NARRATIVE: 48-year-old male comes in with abdominal pain, constipation. He states that he has been struggling with constipation ever since having his gallbladder out about 6 weeks ago. He did take some laxative type medicine about a week ago but has not had very good results since that. He states his appetite is diminished so not eating as much as usual. 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 Abdominal Pain Score (Numeric/FACES): 7 - Related Data Allergies Allergy/AdvReac Type Severity Reaction Status Date / Time cat dander Allergy Swelling Verified 05/29/18 14:52 dog dander Allergy Swelling Verified 05/29/18 14:52 egg Allergy Swollen Verified 05/29/18 14:52 Tongue Penicillins Allergy Rash Verified 05/29/18 14:52 Home Meds: Home Meds Fexofenadine [Siobhan] 180 mg PO DAILY 04/04/18 [History] Bisacodyl [Dulcolax] 5 mg PO DAILY 05/29/18 [History] valACYclovir HCl [Valtrex] 500 mg PO DAILY 05/29/18 [History] Past Medical History - Past Health History Medical/Surgical History: Denies Medical/Surgical History HEENT History: Reports: Other (See Below) Other HEENT History: wisdom teeth out. Respiratory History: Reports: Pneumonia, Recurrent Other Neuro History: headaches from allergies Oncologic (Cancer) History: Reports: Other (See Below) Other Oncologic History: had skin area "froze it" to L) forearm--unsure if was skin CA or not. Dermatologic History: Reports: Other (See Below) Other Dermatologic History: had area of skin removed from L) forearm--unsure of skin CA. - Infectious Disease History Infectious Disease History: Reports: Chicken Pox - Past Surgical History HEENT Surgical History: Reports: Oral Surgery GI Surgical History: Reports: Cholecystectomy, Hernia, Abdominal Social & Family History - Family History Family Medical History: Noncontributory - Tobacco Use Smoking Status *Q: Never Smoker - Caffeine Use Caffeine Use: Reports: Coffee - Recreational Drug Use Recreational Drug Use: No - Living Situation & Occupation Living situation: Reports: with Significant Other (lives with girlfriend.) Occupation: Employed ED ROS GENERAL - Review of Systems Review Of Systems: See Below Constitutional: Denies: Fever, Chills HEENT: Reports: No Symptoms Respiratory: Denies: Shortness of Breath Cardiovascular: Denies: Chest Pain GI/Abdominal: Reports: Abdominal Pain, Decreased Appetite (Intermittent cramping ). Denies: Nausea, Vomiting Musculoskeletal: Reports: No Symptoms Skin: Reports: No Symptoms Neurological: Reports: No Symptoms ED EXAM, GI/ABD - Physical Exam Exam: See Below General Appearance: Alert, No Apparent Distress Throat/Mouth: Normal Inspection Respiratory/Chest: No Respiratory Distress Cardiovascular: Regular Rate, Rhythm GI/Abdominal Exam: Soft, Non-Tender. No: Guarding, Rebound Extremities: Normal Inspection, Normal Range of Motion Neurological: Alert, Oriented, No Motor/Sensory Deficits Skin Exam: Warm, Normal Color Course - Vital Signs Last Recorded V/S: Last Vital Signs Temp 99.1 F 05/29/18 14:49 Pulse 102 H 05/29/18 14:49 Resp 16 05/29/18 14:49 BP 113/80 05/29/18 14:49 Pulse Ox 99 05/29/18 14:49 - Orders/Labs/Meds Orders: Active Orders 24 hr Category Date Time Status KUB [Abdomen 1V Flat] [CR] Stat Exams 05/29/18 15:06 Taken - Re-Assessments/Exams Free Text/Narrative Re-Assessment/Exam: 05/29/18 16:37 KUB does show somewhat increased stool in the colon, not an alarming amount. Discharge instructions as documented. 05/29/18 16:37 Departure - Departure Time of Disposition: 16:08 Disposition: Home, Self-Care 01 Condition: Fair Clinical Impression: Constipation Qualifiers: Constipation type: unspecified constipation type Qualified Code(s): K59.00 - Constipation, unspecified - Discharge Information Instructions: Constipation, Adult, [id number] Referrals: Esvin Enriquez MD [Primary Care Provider] - Forms: ED Department Discharge Additional Instructions: Drink plenty of water to maintain hydration, start using a stool softener once or twice daily, high-fiber diet, you can also take a fiber pill once daily, buy a bottle of mag citrate, drink half of that today and the other half tomorrow. That should really help clear out your colon. Prunes or prune juice as needed. MiraLAX as needed. Follow-up clinic as needed if not getting back to normal as expected. - My Orders Last 24 Hours: My Active Orders 05/29/18 15:06 KUB [Abdomen 1V Flat] [CR] Stat - Assessment/Plan Last 24 Hours: My Active Orders 05/29/18 15:06 KUB [Abdomen 1V Flat] [CR] Stat
--- NOTE | 2018-05-30 07:41 | CR ---
Abdomen: Supine view of the abdomen was obtained. Comparison: Prior abdominal x-ray of 04/04/18. Surgical clips are seen prior cholecystectomy. No abnormal calcifications or soft tissue abnormality is seen. Bony structures appear unremarkable. Impression: 1. Incidental findings. Nothing acute is seen. Diagnostic code #2
== END 2018-05-29 16:16 | disposition home or self-care (01) ==
LOC: JD.ED 14:39
DX: K59.00 Constipation, unspecified (principal); Z79.899 Other long term (current) drug therapy; Z91.09 Other allergy status, other than to drugs and biological substances; Z91.012 Allergy to eggs; Z88.0 Allergy status to penicillin
CPT/HCPCS: 74018; 74018-26; 99283